=== PATIENT | male | born 1940 | race Caucasian/White ===

== ENCOUNTER → 2020-01-19 14:37 | Outpatient (CLI) | payer MEDICARE, OTHER, SELFPAY ==
--- NOTE | 2020-01-19 | DI.ECHO.S_ITS ---
[facility] +---------+ : : [address] : [place] : : : : [id number] : : : : Phone: [phone]+ Echocardiogram Report + + :Name: WINTER CARRILLO Study Date: 01/19/2020 Height: 73 in : :[facility] Weight: 200 lb : : Gender: Male BSA: 2.2 m2 : :: 1940 Age: 79 yrs BP: 160/70 mmHg: :Reason For Study: HTN : : Performed By: Minesh Irwin : :Referring: ZHANNA VITALE : + + Interpretation Summary The left ventricle is normal in size. The ejection fraction is estimated to be 60-65%. The right ventricle is mildly dilated. The right ventricular systolic function is normal. Both atria are severely dilated. There is mild to moderate mitral regurgitation. There is mild aortic regurgitation. There is mild to moderate tricuspid regurgitation. The right ventricular systolic pressure is estimated to be at least 52 mmHg based on an estimated right atrial pressure of 15 mm Hg. There is moderate pulmonary hypertension. There is a large right-sided pleural effusion. The patient was in atrial fibrillation with controlled ventricular rate during the exam. Procedure: A two-dimensional transthoracic echocardiogram with color flow and Doppler was performed. The study quality was technically good. There is no prior echocardiogram noted for this patient. The patient was in atrial fibrillation with controlled ventricular rate during the exam. The patient had a heart rate of 60-89 beats per minute. Left Ventricle: The left ventricle is normal in size. Proximal septal thickening is noted. There is no echo evidence for significant left ventricular outflow tract obstruction. There is no thrombus. The ejection fraction is estimated to be 60-65%. There are no focal wall motion abnormalities. Diastolic function could not be accurately assessed due to atrial fibrillation. Right Ventricle: The right ventricle is mildly dilated. The right ventricular systolic function is normal. Atria: Both atria are severely dilated. The interatrial septum is intact with no evidence for an atrial septal defect. Mitral Valve: There is mild mitral annular calcification. The mitral valve chordae are thickened and/or calcified. There is mild to moderate mitral regurgitation. Aortic Valve: The aortic valve is mildly calcified. There is minimally reduced leaflet mobility. The aortic valve is trileaflet. There is no hemodynamically significant valvular aortic stenosis. There is mild aortic regurgitation. Tricuspid Valve: The tricuspid annulus is dilated. There is mild to moderate tricuspid regurgitation. The right ventricular systolic pressure is estimated to be at least 52 mmHg based on an estimated right atrial pressure of 15 mm Hg. There is moderate pulmonary hypertension. Pulmonic Valve: The pulmonic valve leaflets are thin and pliable; valve motion is normal. There is mild pulmonic regurgitation. Great Vessels: The aortic root is normal size. There is aortic root sclerosis/calcification. The ascending aorta is at the upper limits of normal in size. The pulmonary artery is normal size. The IVC is dilated (diameter is greater than 2.1 cm) and it collapses less than 50% with a sniff. This suggests a high right atrial pressure of 15 mm Hg. Pericardium/ Pleura There is no pericardial effusion. There is a large right-sided pleural effusion. MMode/2D Measurements & Calculations LVIDd: 5.1 cm LVOT diam: 2.4 cm LVIDs: 3.3 cm Ao root diam: 3.8 cm FS: 36.1 % asc Aorta Diam: 3.7 cm EPSS: 0.11 cm IVSd: 0.96 cm LVPWd: 0.83 cm LV moreira. diameter/BSA (cm/m^2): 2.4 LV sys. diameter/BSA (cm/m^2): 1.5 LA dimension: 4.5 cm RA long axis: 7.2 cm LA A2 area: 38.5 cm2 RA area: 38.0 cm2 LA A4 area: 36.2 cm2 RA vol: 170.6 ml LA length (vol): 7.2 cm RA : 79.3 ml/m2 LA vol: 164.2 ml IVC diam: 3.0 cm LA vol index: 76.3 ml/m2 TAPSE: 1.9 cm Doppler Measurements & Calculations Ao V2 max: 151.1 cm/sec LVOT Max Ant: 96.6 cm/sec Ao V2 mean: 114.9 cm/sec LV V1 max P.7 mmHg Ao max P.2 mmHg LV V1 VTI: 20.6 cm Ao mean P.7 mmHg VARSHA(I,D): 2.9 cm2 Ao V2 VTI: 31.9 cm VARSHA(V,D): 2.9 cm2 sev ratio: 0.65 VARSHA indexed to BSA (cm^2/m^2): 1.4 AI P1/2t: 617.2 msec AI dec slope: 213.5 cm/sec2 MV E max ant: 98.1 cm/sec TR max ant: 301.9 cm/sec MV A max ant: 1.1 cm/sec TR max P.5 mmHg MV E/A: 93.1 PA V2 max: 82.7 cm/sec Med Peak E' Ant: 8.2 cm/sec PA V2 mean: 64.4 cm/sec E/E' med: 11.9 PA mean P.7 mmHg Lat Peak E' Ant: 11.7 cm/sec PA pr(Accel): 31.0 mmHg E/E' lat: 8.4 E/e' average: 10.2 MV dec time: 0.22 sec SV(LVOT): 93.0 ml Reading Physician:11:06 PM
== END ==
PROVIDERS: Family Provider Internal Medicine; PCP Internal Medicine; Referring Provider Internal Medicine; Visit Provider Internal Medicine
DX: I08.3 Combined rheumatic disorders of mitral, aortic and tricuspid valves (principal); J90 Pleural effusion, not elsewhere classified; I10 Essential (primary) hypertension; I48.91 Unspecified atrial fibrillation
CPT/HCPCS: 93306

== ENCOUNTER → 2020-07-17 09:44 | Outpatient (CLI) | payer MEDICARE, OTHER, SELFPAY ==
--- NOTE | 2020-07-17 | DI.US.S_ITS ---
PROCEDURE: US ABDOMEN LIMITED INDICATIONS: abnormal level of other serum enzymes TECHNIQUE: Real-time focused scanning was performed of the abdomen, with image documentation. COMPARISON: None. FINDINGS: Liver is normal in size and homogeneous in echotexture. Liver is slightly echogenic. No focal hepatic mass lesions. Small amount of free fluid noted adjacent to the liver. Gallbladder is sonographically normal. No gallstones. No gallbladder wall thickening with gallbladder wall measuring 1.6 millimeters. Trace pericholecystic fluid is noted. No sonographic Chatterjee sign. Biliary tree is nondilated. Common bile duct measures 3.6 millimeters. Pancreas is sonographically normal. Incidental note made of a loculated right pleural effusion. IMPRESSION: 1. Echogenic liver. Finding typically represents fatty infiltration; however, finding is nonspecific and correlation with clinical and laboratory findings is recommended to exclude other etiologies including hepatic cirrhosis. 2. Small amount of ascites. 3. Loculated right pleural effusion. Dictated by: Alycia Suresh MD, PhD on 07/17/2020 at 15:34 Approved by: Alycia Suresh MD, PhD on 07/17/2020 at 15:36
== END ==
PROVIDERS: Family Provider Internal Medicine; PCP Internal Medicine; Referring Provider Internal Medicine; Visit Provider Internal Medicine
DX: R74.8 Abnormal levels of other serum enzymes (principal); R18.8 Other ascites; J90 Pleural effusion, not elsewhere classified
CPT/HCPCS: 76705

== ENCOUNTER → 2020-12-12 13:57 | Outpatient (CLI) | payer MEDICARE, OTHER, SELFPAY ==
--- NOTE | 2020-12-12 14:00 | DI.US.S_ITS ---
PROCEDURE: US RENAL COMPLETE INDICATIONS: Chronic kidney disease, unspecified TECHNIQUE: Real-time scanning was performed of the kidneys and bladder, with image documentation. COMPARISON: [facility], , ABDOMEN LIMITED, 07/17/2020, 10:02. FINDINGS: Kidneys: Kidneys are normal in size. Right kidney measures 11.7 cm long; left kidney measures 11.8 cm long. Right renal cortical thickness is 1.7 cm; left renal cortical thickness is 1.8 cm. Renal cortical echotexture is normal. Severe bilateral hydronephrosis is present. Bladder: Pre-void bladder volume is 1032 mL. Post-void residual is 790 mL. Pre-void images demonstrate no intraluminal masses or stones. Miscellaneous: No free pelvic fluid. IMPRESSION: 1. 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 Recommend clinical correlation and follow-up. Dictated by: Dao Leigh [facility] Interpreted: Alycia Suresh MD on 12/12/2020 at 17:27 Transcribed by: MELODY on 12/12/2020 at 17:30 Approved by: Alycia Suresh MD, PhD on 12/12/2020 at 18:56
== END ==
PROVIDERS: Family Provider Internal Medicine; PCP Internal Medicine; Referring Provider Internal Medicine; Visit Provider Internal Medicine
DX: N18.9 Chronic kidney disease, unspecified (principal); N13.30 Unspecified hydronephrosis
CPT/HCPCS: 76770

== ENCOUNTER 2021-02-20 09:54 | Inpatient (IN) | payer MEDICARE, OTHER, SELFPAY ==
[2021-02-20] VITALS (18 sets, daily range): BP systolic 138–183; BP diastolic 67–97; PULSE 56–70; RESP 10–22; TEMP 36.6–37.1; O2SAT 96–99; BMI 29.1
--- NOTE | 2021-02-20 10:07 | DI.RAD.S_ITS ---
PROCEDURE: XR CHEST 1V INDICATIONS: CHF TECHNIQUE: One view of the chest was acquired. COMPARISON: None. FINDINGS: Heart size is enlarged, there is mild vascular congestion present. Moderate right pleural effusion appears loculated. Atherosclerotic vascular calcification noted in the aortic arch. Osseous structures unremarkable. IMPRESSION: Cardiomegaly and mild vascular congestion. Moderate right pleural effusion appears non dependent and possibly loculated. Consider follow-up contrast CT to exclude empyema Dictated by: Efren Saeed M.D. on 02/20/2021 at 9:55 Approved by: Efren Saeed M.D. on 02/20/2021 at 10:00
--- NOTE | 2021-02-20 10:19 | ED_ITS ---
HPI - General Adult General Chief complaint: Shortness of Breath/Dyspnea Stated complaint: BI LEG SWELLING Time Seen by Provider: 02/20/21 10:00 Source: patient Mode of arrival: Wheelchair Limitations: no limitations History of Present Illness HPI narrative: Patient is an 80-year-old male who was seen at the compliance project manager office this morning for atrial fibrillation and diastolic heart failure. This is the 1st time that he has seen this provider. He is on anticoagulation. He notes that over the past several weeks he has had increased swelling in his lower extremities and dyspnea on exertion. The compliance project manager felt given his presentation and social situation that the patient should be admitted for diuresis and echocardiogram. Patient denies any chest pain. He is taking his medications as directed. He states that he has also been recently evaluated by Urology in there has been concern about urinary retention. He is here under the direction of his compliance project manager. Related Data Home Medications Medication Instructions Recorded Confirmed CALCIUM CARBONATE/VITAMIN D3 1 ctb PO Q DAY #0 05/16/12 02/05/21 (Calcium 600 With Vit D Chew Tb) Saw [place] 450 mg PO Q DAY #0 05/16/12 02/05/21 cholecalciferol (vitamin D3) 25 1,000 iu PO Q DAY #0 05/16/12 02/05/21 mcg (1,000 unit) tablet (Vitamin D3) CHONDROITIN SULFATE/GLUCOSAMIN 1 tab PO Q DAY #0 05/17/12 02/05/21 (GLUCOSAMINE/CHONDROITIN 600 MG-750 MG) Multivitamin and Minerals5 (MATURE 1 tab PO Q DAY #0 05/17/12 02/05/21 COMPLETE) atenolol 50 mg tablet 50 mg PO DAILY 02/05/21 02/05/21 furosemide 40 mg tablet 40 mg PO DAILY 02/05/21 02/05/21 warfarin 5 mg tablet 5 mg PO DAILY 02/05/21 02/05/21 Previous Rx's Medication Instructions Recorded POTASSIUM CHLORIDE (K-DUR 20) 20 meq PO Q DAY #90 07/18/12 lisinopril 5 mg tablet 5 mg PO QDAY #90 09/13/12 Allergies Allergy/AdvReac Type Severity Reaction Status Date / Time hydrocodone [HYDROCODONE] Allergy Mild NAUSEA, Verified 02/20/21 10:32 VOMITING hydromorphone [HYDROMORPHONE] Allergy Mild NAUSEA, Verified 02/20/21 10:32 VOMITING Review of Systems Constitutional Constitutional: Denies fever(s) Cardiovascular Cardiovascular: Denies chest pain, Denies syncope, Denies rapid heart rate, Reports pedal edema, Reports dyspnea and Reports dyspnea on exertion Respiratory Respiratory: Denies cough, Reports dyspnea and Reports dyspnea on exertion Gastrointestinal Gastrointestinal: Denies abdominal pain, Denies nausea and Denies vomiting Genitourinary Comments: Not emptying bladder [place] Musculoskeletal Comments: Lower extremity swelling Integumentary/Breasts Skin/Breast: Denies rash Neurologic Neurologic: Denies syncope Psychiatric Psychiatric: Reports system reviewed and no additional complaints, except as documented Hematologic/Lymphatic On Anticoagulants: Yes Allergic/Immunologic Allergic/Immunologic: Reports system reviewed and no additional complaints, except as documented Patient History Medical History Atrial fibrillation Lower extremity edema Obstructive uropathy Urinary retention Social History Smoking Status: Former smoker Smoking Status: Former smoker alcohol intake frequency: 0-2 drinks per day Substance Use Type: does not use Exam Initial Vital Signs Initial Vital Signs: Vital Signs Temperature 98.1 F 02/20/21 09:58 Pulse Rate 68 02/20/21 09:58 Respiratory Rate 20 02/20/21 09:58 Blood Pressure 165/97 H 02/20/21 09:58 Pulse Oximetry 99 02/20/21 09:58 Const General: cooperative and No acute distress HENMT Head: normal to inspection and normocephalic Eyes General: appearance normal, both eyes and all related structures Neck Neck: normal visual inspection Resp Effort & Inspection: tachypneic Auscultation: crackles Cardio Rate: regular rate Rhythm: abnormal rhythm GI Inspection: normal to inspection Palpation: soft Skin General: no rashes or lesions noted Neuro General: patient alert, patient awake and patient oriented x3 Extrem General: capillary refill normal and edema Psych Appearance: grossly normal and well kempt Scores GCS [place] coma scale eye opening: Spontaneous [place] coma scale verbal response: Orientated [place] coma scale motor response: Obey commands [place] coma scale total score: 15 Course Orders Ordered: ED Orders 02/20/21 10:07 XR chest 1V Stat EKG-12 Lead Stat 02/20/21 10:12 Complete Blood Count AUTO DIFF Stat Comprehensive Metabolic Panel Stat Lipase Stat NT-proBNP (BNP-Adult 18+) Stat Troponin & CK Cardiac Panel Stat 02/20/21 10:38 COVID19 - ADMIT (THERMAL MOLDER swab/PCR) Stat 02/20/21 10:45 Partial Thromboplastin Time Stat Prothrombin Time INR Stat Urinalysis and Microscopic Stat 02/20/21 11:22 CT chest w con Stat Discontinued Medications Furosemide (Furosemide 100 Mg/10 Ml Vial) 80 mg IV NOW ONE Stop: 02/20/21 10:20 Last Admin: 02/20/21 10:56 Dose: 80 mg Documented by: BAIRON Vital Signs Vital signs: Vital Signs - 8 hr 02/20/21 09:58 02/20/21 10:31 02/20/21 10:36 Temperature 98.1 F Pulse Rate 68 62 58 L Respiratory Rate 20 14 17 Blood Pressure 165/97 H 168/90 H Pulse Oximetry 99 98 99 02/20/21 11:00 02/20/21 11:38 02/20/21 12:00 Temperature Pulse Rate 62 63 57 L Respiratory Rate 15 16 13 Blood Pressure 179/85 H 183/83 H Pulse Oximetry 99 99 02/20/21 12:01 02/20/21 12:30 02/20/21 12:32 Temperature Pulse Rate 62 56 L 56 L Respiratory Rate 13 16 13 Blood Pressure 174/83 H 168/83 H Pulse Oximetry 98 99 99 02/20/21 13:00 Temperature Pulse Rate 56 L Respiratory Rate 10 L Blood Pressure 159/88 H Pulse Oximetry 98 Medical Decision Making Medical Records Medical records reviewed: Yes I reviewed the patient's medical records. Lab Data Lab results reviewed: Yes I reviewed the patient's lab results. Result diagrams: 02/20/21 10:12 02/20/21 10:12 Labs: Lab Results 02/20/21 02/20/21 02/20/21 Range/Units 10:12 10:12 10:38 WBC 6.2 (4.5-11.0) X10^3/uL RBC 3.09 L (4.5-5.9) X10^6/uL Hgb 10.5 L (13.5-17.5) g/dL Hct 31.4 L (41-53) % MCV 101.4 H (80-100) fL MCH 34.0 (26-34) PG MCHC 33.5 (30-36) % RDW 16.8 H (11.6-14.8) % Plt Count 182 (150-400) X10^3/uL Neut % (Auto) 53.3 (50-75) % Lymph % (Auto) 22.7 L (25-40) % Wilkes % (Auto) 11.6 (3-14) % Eos % (Auto) 8.3 H (2-4) % Baso % (Auto) 4.1 H (0-2) % Neut # (Auto) 3300 (2390-2360) /uL Lymph # (Auto) 1400 (3914-6371) /uL Wilkes # (Auto) 700 (0-900) /uL Eos # (Auto) 500 H (0-450) /uL Baso # (Auto) 300 H (0-100) /uL PT (10.1-12.7) SECONDS INR (0.9-1.3) APTT (26.4-36.2) SECONDS Sodium 142 (137-145) mmol/L Potassium 3.8 (3.4-5.1) mmol/L Chloride 108 H (98-107) mmol/L Carbon Dioxide 27 (22-32) mmol/L BUN 17 (9-20) mg/dL Creatinine 1.38 H (0.66-1.25) mg/dL Estimated GFR 49.3 L (>60) mL/min BUN/Creatinine Ratio 12.3 (6-22) Glucose 97 (80-110) mg/dL Calcium 9.2 (8.4-10.2) mg/dL Total Bilirubin 1.3 (0.2-1.3) mg/dL AST 43 (17-59) IU/L ALT 25 (<50) IU/L Alkaline Phosphatase 130 H (38-126) U/L Total Creatine Kinase 186 H (55-170) U/L CK-MB (CK-2) 4.30 H (<2.37) ng/mL CK-MB (CK-2) Rel Index 2.3 (1.5-5.0) % Troponin I 0.012 (0.01-0.034) ng/mL NT-Pro-B Natriuret Pep 3490 H (<450) pg/mL Total Protein 7.5 (6.3-8.2) g/dL Albumin 3.9 (3.5-5.0) g/dL Globulin 3.6 (1.7-4.1) g/dL Albumin/Globulin Ratio 1.1 (1.0-2.8) Lipase 142 (23-300) U/L Urine Color Urine Appearance Urine pH (4.5-8.0) Ur Specific [place] (1.000-1.035) Urine Protein (Negative) Urine Glucose (UA) (Negative) g/dL Urine Ketones (NEGATIVE) Urine Occult Blood (Negative) Urine Nitrate (Negative) Urine Bilirubin (NEGATIVE) Urine Urobilinogen (0.2) E.U./dL Ur Leukocyte Esterase (NEGATIVE) Urine RBC (0-5/HPF) Urine WBC (0-5/HPF) Urine Bacteria (None) Ur Culture Indicated? SARS-CoV-2 (PCR) Negative (Negative) 02/20/21 02/20/21 Range/Units 10:45 10:45 WBC (4.5-11.0) X10^3/uL RBC (4.5-5.9) X10^6/uL Hgb (13.5-17.5) g/dL Hct (41-53) % MCV (80-100) fL MCH (26-34) PG MCHC (30-36) % RDW (11.6-14.8) % Plt Count (150-400) X10^3/uL Neut % (Auto) (50-75) % Lymph % (Auto) (25-40) % Wilkes % (Auto) (3-14) % Eos % (Auto) (2-4) % Baso % (Auto) (0-2) % Neut # (Auto) (8470-3152) /uL Lymph # (Auto) (1160-0291) /uL Wilkes # (Auto) (0-900) /uL Eos # (Auto) (0-450) /uL Baso # (Auto) (0-100) /uL PT 30.6 H (10.1-12.7) SECONDS INR 2.7 H (0.9-1.3) APTT 39 H (26.4-36.2) SECONDS Sodium (137-145) mmol/L Potassium (3.4-5.1) mmol/L Chloride (98-107) mmol/L Carbon Dioxide (22-32) mmol/L BUN (9-20) mg/dL Creatinine (0.66-1.25) mg/dL Estimated GFR (>60) mL/min BUN/Creatinine Ratio (6-22) Glucose (80-110) mg/dL Calcium (8.4-10.2) mg/dL Total Bilirubin (0.2-1.3) mg/dL AST (17-59) IU/L ALT (<50) IU/L Alkaline Phosphatase (38-126) U/L Total Creatine Kinase (55-170) U/L CK-MB (CK-2) (<2.37) ng/mL CK-MB (CK-2) Rel Index (1.5-5.0) % Troponin I (0.01-0.034) ng/mL NT-Pro-B Natriuret Pep (<450) pg/mL Total Protein (6.3-8.2) g/dL Albumin (3.5-5.0) g/dL Globulin (1.7-4.1) g/dL Albumin/Globulin Ratio (1.0-2.8) Lipase (23-300) U/L Urine Color [place] Urine Appearance Clear Urine pH 7.0 (4.5-8.0) Ur Specific [place] 1.010 (1.000-1.035) Urine Protein Negative (Negative) Urine Glucose (UA) Negative (Negative) g/dL Urine Ketones Negative (NEGATIVE) Urine Occult Blood 1+ H (Negative) Urine Nitrate Negative (Negative) Urine Bilirubin Negative (NEGATIVE) Urine Urobilinogen 0.2 (0.2) E.U./dL Ur Leukocyte Esterase Negative (NEGATIVE) Urine RBC 5-10/hpf H (0-5/HPF) Urine WBC None seen (0-5/HPF) Urine Bacteria None seen (None) Ur Culture Indicated? Cult not indicated SARS-CoV-2 (PCR) (Negative) Imaging Data CT scan - chest: Radiologist's Impression: [address] [id number] Scan ReportSigned Patient: Néstor Soto MAGGIE#: [id number]: [id number]:[id number]/Sex: 80 / MDate of Service: 02/20/21Loc: EDAccession Number: [id number] Procedure: CT chest w con Ordering Provider: Wally Doss D.O. PROCEDURE: CT CHEST W CON INDICATIONS: Eval for right-sided empyema TECHNIQUE: After the administration of intravenous contrast, 5 mm thick sections acquired from the pulmonary apices to the posterior costophrenic angles. 1 mm axial lung, 5 mm thick coronal and sagittal reformats and 7 mm axial MIP were acquired. For radiation dose reduction, the following was used: automated exposure control, adjustment of mA and/or kV according to patient size. COMPARISON: [facility], CR, XR CHEST 1V, 02/20/2021, 10:09. FINDINGS: Image quality: Excellent. Lungs and pleura: There is a moderate right and mild left pleural effusion. Areas of superimposed consolidative opacity are noted left. There is a very minimal appearance of pleural enhancement particularly in the posterior inferior aspect appearing slightly asymmetric from the left. Mediastinum: Heart size is large. No pericardial effusion. Multiple lymph nodes are noted within the mediastinum including a 2.1 cm right anterior paratracheal lymph node. There is an exophytic low-attenuation mass at the margin of the anterior mediastinal fat measuring 2.3 x 1.6 cm on series 2, image 22. Hounsfield units measure 33. Right hilar mass is present measuring 1.8 cm. Thoracic aorta and central pulmonary arteries are normal in size. Esophagus is normal in caliber. No hiatal hernia. Bones and chest wall: No suspicious bony lesions. No vertebral body compression fractures. No axillary or supraclavicular adenopathy by size criteria. Thyroid gland is unremarkable . Abdomen: There is partially visualized prominence of the left renal collecting system. Otherwise, visualized upper abdominal solid organs appear normal. Upper abdominal bowel loops are normal in caliber. IMPRESSION: 1. Mild to moderate bilateral effusions, right greater than left. There is a very minimal appearance of asymmetric pleural enhancement noted on the right. While it is not as prominent as typically seen as empyema, it cannot be definitively excluded. 2. Superimposed consolidations are present most notably on the right suspected to be atelectasis. However, areas of underlying pneumonia or other mass lesion cannot be excluded. 3. Hilar and mediastinal adenopathy is present. While this could be reactive in nature, given presence of effusions, underlying areas of mass lesion potentially malignancy with malignant adenopathy cannot be excluded. Interval follow-up is recommended. 4. Paramediastinal mass as described above adjacent to the anterior mediastinum. Hounsfield units are greater than expected for a simple cyst. This is highly suspicious of either malignant exophytic lymph node or lung mass concerning for malignancy. Dictated by: Selene Delcid M.D. on 02/20/2021 at 12:19 Approved by: Selene Delcid M.D. on 02/20/2021 at 12:49 Chest x-ray: Radiologist's Impression: [address] [id number] ReportSigned Patient: Néstor Soto JMR#: [id number]: 8Acct:[id number]/Sex: 80 / MDate of Service: 02/20/21Loc: EDAccession Number: [id number] Procedure: XR chest 1V Ordering Provider: Wally Doss D.O. PROCEDURE: XR CHEST 1V INDICATIONS: CHF TECHNIQUE: One view of the chest was acquired. COMPARISON: None. FINDINGS: Heart size is enlarged, there is mild vascular congestion present. Moderate right pleural effusion appears loculated. Atherosclerotic vascular calcification noted in the aortic arch. Osseous structures unremarkable. IMPRESSION: Cardiomegaly and mild vascular congestion. Moderate right pleural effusion appears non dependent and possibly loculated. Consider follow-up contrast CT to exclude empyema Dictated by: Efren Saeed M.D. on 02/20/2021 at 9:55 Approved by: Efren Saeed M.D. on 02/20/2021 at 10:00 ECG Data Attestation: I personally reviewed and interpreted this ECG as follows: Interpretation: Atrial fibrillation Ventricular rate is 68 Normal QRS Normal QTC No ST T wave changes MDM Narrative Medical decision making narrative: Patient is tachypneic. Chest x-ray does show pleural effusions. There was some report of a potential empyema so CT scan of the chest was ordered which again showed effusions. No chest pain. BNP elevated. Does have lower extremity swelling. Patient was given Lasix here in the emergency department and did diurese. COVID is negative. Patient's card iologist recommended patient be admitted to the hospital for diuresis and also an echocardiogram. Will admit for further evaluation and treatment. Discussed the case with Dr. Chong with Internal Medicine. Discharge Plan Departure Patient Disposition: Admitted as Observation Clinical Impression: Congestive heart failure, Shortness of breath, Pleural effusion Admit Date/Time: 02/20/21 13:43 Admit Provider: Jc Chong
[2021-02-20 10:28] LABS: Add Manual Diff / Slide Review NO; Basophils Absolute Auto 300 /uL (0-100); Basophils Percent Auto 4.1 % (0-2); Eosinophils Absolute Auto 500 /uL (0-450); Eosinophils Percent Auto 8.3 % (2-4); Hematocrit 31.4 % (41-53); Hemoglobin 10.5 g/dL (13.5-17.5); Lymphocytes Absolute Auto 1400 /uL (1100-4500); Lymphocytes Percent Auto 22.7 % (25-40); Mean Corpuscular HGB Conc 33.5 % (30-36); Mean Corpuscular Volume 101.4 fL (80-100); Monocytes Absolute Auto 700 /uL (0-900); Monocytes Percent Auto 11.6 % (3-14); Neutrophils Absolute Auto 3300 /uL (1500-7000); Neutrophils Percent Auto 53.3 % (50-75); Platelet Count 182 X10^3/uL (150-400); Red Blood Cell Count 3.09 X10^6/uL (4.5-5.9); Red Cell Distribution Width 16.8 % (11.6-14.8); White Blood Cell Count 6.2 X10^3/uL (4.5-11.0)
[2021-02-20 10:36] LABS: Alanine Aminotransferase 25 IU/L (<50); Albumin 3.9 g/dL (3.5-5.0); Albumin Globulin Ratio 1.1 (1.0-2.8); Alkaline Phosphatase 130 U/L (38-126); Aspartate Aminotransferase 43 IU/L (17-59); BUN Creatinine Ratio 12.3 (6-22); Bilirubin Total 1.3 mg/dL (0.2-1.3); Blood Urea Nitrogen 17 mg/dL (9-20); Calcium 9.2 mg/dL (8.4-10.2); Carbon Dioxide 27 mmol/L (22-32); Chloride 108 mmol/L (98-107); Creatine Kinase 186 U/L (55-170); Estimated Glomerular Filt Rate 49.3 mL/min (>60); Globulin 3.6 g/dL (1.7-4.1); Glucose 97 mg/dL (80-110); HEMOLYSIS < 15 (0-50); Lipase 142 U/L (23-300); Potassium 3.8 mmol/L (3.4-5.1); Sodium 142 mmol/L (137-145); Total Protein 7.5 g/dL (6.3-8.2)
[2021-02-20 10:46] LABS: NT-proBNP (BNP-Adult 18+) 3490 pg/mL (<450); Troponin I 0.012 ng/mL (0.01-0.034)
[2021-02-20 10:51] LABS: CKMB % Relative Index 2.3 % (1.5-5.0)
[2021-02-20] MEDS: FUROSEMIDE 100 MG/10 ML VIAL 80 MG IV (10:56)
[2021-02-20 10:57] LABS: Bacteria Urine None Seen; WBC Urine None Seen (0-5/HPF)
[2021-02-20 10:58] LABS: Appearance Urine UA CLEAR; Bilirubin Urine UA NEGATIVE (NEGATIVE); Color Urine UA ORANGE; Glucose Urine UA NEGATIVE (Negative); Ketones Urine UA NEGATIVE (NEGATIVE); Leukocyte Esterase Urine UA NEGATIVE (NEGATIVE); Nitrite Urine UA NEGATIVE (Negative); Occult Blood Urine UA 1+ (Negative); Protein Urine UA NEGATIVE (Negative); Urobilinogen Urine UA 0.2 E.U./dL (0.2)
[2021-02-20 11:10] LABS: INR 2.7 (0.9-1.3); Prothrombin Time 30.6 SECONDS (10.1-12.7)
[2021-02-20 11:13] LABS: PTT Partial Thromboplastin Tim 39 SECONDS (26.4-36.2)
--- NOTE | 2021-02-20 11:22 | DI.CT.S_ITS ---
PROCEDURE: CT CHEST W CON INDICATIONS: Eval for right-sided empyema TECHNIQUE: After the administration of intravenous contrast, 5 mm thick sections acquired from the pulmonary apices to the posterior costophrenic angles. 1 mm axial lung, 5 mm thick coronal and sagittal reformats and 7 mm axial MIP were acquired. For radiation dose reduction, the following was used: automated exposure control, adjustment of mA and/or kV according to patient size. COMPARISON: [facility], CR, XR CHEST 1V, 02/20/2021, 10:09. FINDINGS: Image quality: Excellent. Lungs and pleura: There is a moderate right and mild left pleural effusion. Areas of superimposed consolidative opacity are noted left. There is a very minimal appearance of pleural enhancement particularly in the posterior inferior aspect appearing slightly asymmetric from the left. Mediastinum: Heart size is large. No pericardial effusion. Multiple lymph nodes are noted within the mediastinum including a 2.1 cm right anterior paratracheal lymph node. There is an exophytic low-attenuation mass at the margin of the anterior mediastinal fat measuring 2.3 x 1.6 cm on series 2, image 22. Hounsfield units measure 33. Right hilar mass is present measuring 1.8 cm. Thoracic aorta and central pulmonary arteries are normal in size. Esophagus is normal in caliber. No hiatal hernia. Bones and chest wall: No suspicious bony lesions. No vertebral body compression fractures. No axillary or supraclavicular adenopathy by size criteria. Thyroid gland is unremarkable . Abdomen: There is partially visualized prominence of the left renal collecting system. Otherwise, visualized upper abdominal solid organs appear normal. Upper abdominal bowel loops are normal in caliber. IMPRESSION: 1. Mild to moderate bilateral effusions, right greater than left. There is a very minimal appearance of asymmetric pleural enhancement noted on the right. While it is not as prominent as typically seen as empyema, it cannot be definitively excluded. 2. Superimposed consolidations are present most notably on the right suspected to be atelectasis. However, areas of underlying pneumonia or other mass lesion cannot be excluded. 3. Hilar and mediastinal adenopathy is present. While this could be reactive in nature, given presence of effusions, underlying areas of mass lesion potentially malignancy with malignant adenopathy cannot be excluded. Interval follow-up is recommended. 4. Paramediastinal mass as described above adjacent to the anterior mediastinum. Hounsfield units are greater than expected for a simple cyst. This is highly suspicious of either malignant exophytic lymph node or lung mass concerning for malignancy. Dictated by: Selene Delcid M.D. on 02/20/2021 at 12:19 Approved by: Selene Delcid M.D. on 02/20/2021 at 12:49
[2021-02-20 11:26] LABS: Culture Indicated Urine Cult Not Indicated; RBC Urine 5-10/HPF (0-5/HPF)
[2021-02-20 12:03] LABS: COVID19 - ADMIT (NP swab/PCR) Negative (Negative)
--- NOTE | 2021-02-20 14:40 | PC.NURSE ---
Admit note: Patient admitted from ED, awake, alert and pleasantly cooperative. TELE placed on arrival. Oriented to room, environment, and plan of care.
--- NOTE | 2021-02-20 16:29 | P.HP_ITS ---
History of Present Illness History of Present Illness Date Patient Seen: 02/20/21 Time Patient Seen: 16:29 Chief complaint: BI LEG SWELLING Narrative: This is an 80 year old male with a past medical history atrial fibrillation on anticoagulation, overflow incontinence / chronic urinary obstruction, diastolic heart failure who was sent to the emergency room at the direction of his new supervisor nutritional yeast for presumed heart failure. He has gained close to 40 lb over the past 6 months, with slow gradual weight gain and worsening fatigue and weakness. He only admits to lower extremity edema, scrotal edema, and early satiety. He denies any shortness of breath though he walks generally very slowly and paces himself when going to the grocery store. He denies any chest pain, palpitations, headaches, vision changes, chest pressure, dyspnea on exertion, orthopnea. In the emergency room, the patient was mildly hypertensive, the remainder of his vital signs were unremarkable. Patient was saturating well on room air. Initial labs were notable for a mild anemia with a hemoglobin of 10.5 with an MCV of 101.4. INR was therapeutic at 2.7. Chemistries revealed a mild elevation is creatinine to 1.38, his usual baseline appears to be around 1.1. The remainder of his chemistries were unremarkable. Troponin was within normal limits at 0.012. ProBNP was elevated at 3490. Urinalysis was performed which showed 1+ occult blood, 5-10 rbc's, the patient is already scheduled for an outpatient cystoscopy per Urology documentation. COVID-19 testing was negative. Chest x-ray showed cardiomegaly with a right-sided pleural effusion, possibly loculated so CT was recommended. CT of his chest with contrast showed bilateral pleural effusions, right greater than left without loculation but did show some mild pleural thickening possibly. There also superimposed consolidations most probably due to atelectasis but could not rule out infectious etiologies. There was also hilar adenopathy as well as a paramediastinal mass concerning for possible malignancy. Patient History Medical History (Updated 02/20/21 @ 16:44 by Jc Chong DO) Atrial fibrillation Elevated PSA (05/16/12) Hypertension (05/16/12) Lower extremity edema Obstructive uropathy Urinary retention Surgical History (Updated 02/20/21 @ 16:44 by Jc Chong DO) H/O inguinal hernia repair Family & Social History Family History (Updated 02/20/21 @ 16:46 by Jc Chong DO) Mother Cancer Father Hypertension Social History: household members significant other Prior Living Arrangements House Safety & Behavioral: Feels Safe in Current Yes Environment Been Physically Hurt or No Threatened By a Person Tobacco & Substance use: Smoking Status Former smoker alcohol intake frequency 0-2 drinks per day Substance Use Type does not use Meds Home Medications and Allergies Home Medications Medication Instructions Recorded Confirmed Type lisinopril 5 mg tablet 5 mg PO QDAY #90 09/13/12 02/20/21 Rx atenolol 50 mg tablet 50 mg PO DAILY 02/05/21 02/20/21 History furosemide 40 mg tablet 40 mg PO DAILY 02/05/21 02/20/21 History warfarin 5 mg tablet 5 mg PO DAILY 02/05/21 02/20/21 History potassium chloride 20 mEq 20 meq PO DAILY 02/20/21 02/20/21 History tablet,extended release(part/cryst) tamsulosin 0.4 mg capsule 0.4 mg PO DAILY 02/20/21 02/20/21 History Allergies Allergy/AdvReac Type Severity Reaction Status Date / Time hydrocodone [HYDROCODONE] Allergy Mild NAUSEA, Verified 02/20/21 10:32 VOMITING hydromorphone [HYDROMORPHONE] Allergy Mild NAUSEA, Verified 02/20/21 10:32 VOMITING Review of Systems Review of Systems Narrative: All other systems reviewed with the patient and are negative unless otherwise stated. Exam Vital Signs (past 8 hours): - 02/20/21 09:58 02/20/21 10:31 02/20/21 10:36 Temperature 98.1 F Pulse Rate 68 62 58 L Respiratory Rate 20 14 17 Blood Pressure 165/97 H 168/90 H Pulse Oximetry 99 98 99 02/20/21 11:00 02/20/21 11:38 02/20/21 12:00 Temperature Pulse Rate 62 63 57 L Respiratory Rate 15 16 13 Blood Pressure 179/85 H 183/83 H Pulse Oximetry 99 99 02/20/21 12:01 02/20/21 12:30 02/20/21 12:32 Temperature Pulse Rate 62 56 L 56 L Respiratory Rate 13 16 13 Blood Pressure 174/83 H 168/83 H Pulse Oximetry 98 99 99 02/20/21 13:00 02/20/21 13:30 02/20/21 14:00 Temperature Pulse Rate 56 L 59 L 67 Respiratory Rate 10 L 22 14 Blood Pressure 159/88 H 179/80 H 154/88 H Pulse Oximetry 98 99 96 02/20/21 14:36 Temperature Pulse Rate 66 Respiratory Rate 22 Blood Pressure 162/82 H Pulse Oximetry 99 Oxygen Delivery Method Room Air Narrative Exam Narrative: GENERAL APPEARANCE: Well developed, well nourished, in no acute distress. SKIN: Inspection of the skin reveals no rashes, ulcerations or petechiae. HEENT: Normocephalic atraumatic, extraocular muscles are intact, oropharynx is clear and mucous membranes are moist, neck is supple without adenopathy NECK: Supple and symmetric. There was no thyroid enlargement, and no tenderness, or masses were felt. CHEST: Normal AP diameter and normal contour without any kyphoscoliosis. LUNGS: Auscultation of the lungs revealed no wheezes, rhonchi, or rales. CARDIOVASCULAR: Irregularly irregular rhythm normal rate, there is a 3/6 systolic murmur but no rubs or gallops. ABDOMEN: Soft and nontender with normal bowel sounds. No ascites was noted. MUSCULOSKELETAL: There was no tenderness or effusions noted. Muscle strength and tone were normal. EXTREMITIES: No cyanosis, clubbing. Large LE and scrotal pitting edema. NEUROLOGIC: Alert and oriented x 3. Normal affect. Gait was normal. Strength is +5/5 in the Upper Extremities and Lower Extremities Bilaterally. Sensation to touch was normal. Objective ECG Impression: Atrial fibrillation with occasional PAC. No evidence of acute ischemia. Imaging Chest x-ray: My impression: Cardiomegaly, right-sided pleural effusion. Labs Result Diagrams: 02/20/21 10:12 02/20/21 10:12 Labs: Laboratory Results - last 24 hr 02/20/21 02/20/21 02/20/21 10:12 10:12 10:38 WBC 6.2 RBC 3.09 L Hgb 10.5 L Hct 31.4 L MCV 101.4 H MCH 34.0 MCHC 33.5 RDW 16.8 H Plt Count 182 Neut % (Auto) 53.3 Lymph % (Auto) 22.7 L [place] % (Auto) 11.6 Eos % (Auto) 8.3 H Baso % (Auto) 4.1 H Neut # (Auto) 3300 Lymph # (Auto) 1400 [place] # (Auto) 700 Eos # (Auto) 500 H Baso # (Auto) 300 H PT INR APTT Sodium 142 Potassium 3.8 Chloride 108 H Carbon Dioxide 27 BUN 17 Creatinine 1.38 H Estimated GFR 49.3 L BUN/Creatinine Ratio 12.3 Glucose 97 Calcium 9.2 Total Bilirubin 1.3 AST 43 ALT 25 Alkaline Phosphatase 130 H Total Creatine Kinase 186 H CK-MB (CK-2) 4.30 H CK-MB (CK-2) Rel Index 2.3 Troponin I 0.012 NT-Pro-B Natriuret Pep 3490 H Total Protein 7.5 Albumin 3.9 Globulin 3.6 Albumin/Globulin Ratio 1.1 Lipase 142 Urine Color Urine Appearance Urine pH Ur Specific [place] Urine Protein Urine Glucose (UA) Urine Ketones Urine Occult Blood Urine Nitrate Urine Bilirubin Urine Urobilinogen Ur Leukocyte Esterase Urine RBC Urine WBC Urine Bacteria Ur Culture Indicated? SARS-CoV-2 (PCR) Negative 02/20/21 02/20/21 10:45 10:45 WBC RBC Hgb Hct MCV MCH MCHC RDW Plt Count Neut % (Auto) Lymph % (Auto) [place] % (Auto) Eos % (Auto) Baso % (Auto) Neut # (Auto) Lymph # (Auto) [place] # (Auto) Eos # (Auto) Baso # (Auto) PT 30.6 H INR 2.7 H APTT 39 H Sodium Potassium Chloride Carbon Dioxide BUN Creatinine Estimated GFR BUN/Creatinine Ratio Glucose Calcium Total Bilirubin AST ALT Alkaline Phosphatase Total Creatine Kinase CK-MB (CK-2) CK-MB (CK-2) Rel Index Troponin I NT-Pro-B Natriuret Pep Total Protein Albumin Globulin Albumin/Globulin Ratio Lipase Urine Color [place] Urine Appearance Clear Urine pH 7.0 Ur Specific [place] 1.010 Urine Protein Negative Urine Glucose (UA) Negative Urine Ketones Negative Urine Occult Blood 1+ H Urine Nitrate Negative Urine Bilirubin Negative Urine Urobilinogen 0.2 Ur Leukocyte Esterase Negative Urine RBC 5-10/hpf H Urine WBC None seen Urine Bacteria None seen Ur Culture Indicated? Cult not indicated SARS-CoV-2 (PCR) Assessment & Plan Assessment & Plan narrative: This is an 80 year old male with a past medical history atrial fibrillation on anticoagulation, overflow incontinence / chronic urinary obstruction, diastolic heart failure who was sent to the emergency room at the direction of his new supervisor nutritional yeast for presumed heart failure. He is massively volume overloaded, possibly secondary to worsening heart failure but likely a combination of his diastolic dysfunction and chronic urinary obstruction. 1. Acute on chronic diastolic heart failure, present on admission -patient with massive volume overload in his lower extremities and has significant scrotal edema as well. He has no acute respiratory failure and fairly minimal respiratory symptoms at this time. -he was given 80 mg of IV Lasix in the emergency room with massive output, a [place] catheter was placed as well. Given his chronic urinary obstruction his volume overload is likely secondary to both his acute heart failure and urinary retention. Will hold off on additional Lasix overnight as he may have a postobstructive diuresis after De [place] catheter placement in the emergency room. -consider furosemide 40 mg tomorrow depending on output overnight -strict intake and output -1.2 L fluid restriction -obtain TTE 2. Acute on Chronic urinary obstruction - continue de la rosa catheter, flomax. Bladder scan of >700 cc in the ER. Given chronic obstruction documented as an outpatient, watch for post obstructive diuresis and keep de la rosa catheter until outpatient follow up with urology. 3. Likely chronic atrial fibrillation though exact type is not fully known, on anticoagulation - continue atenolol and warfarin 4. Mediastinal mass and bilateral pleural effusions - possible new malignancy noted on CT. Bilateral pleural effusions on CT as well. Probably related to volume overload. Would recommend repeat imaging as an outpatient after diuresis, with possible referral for biopsy if desired. Code: Full, surrogate decision maker is patient's daughterIsis Dispo: admit as observation DVT: on coumadin. COVID-19 COVID-19 status: Negative Time Spent With Patient Time with patient: Greater than 35 minutes Quality MIPS - Admit I confirm the patient?s Advance Care Plan is present, Code status is documented, Surrogate decision maker is in patient?s record [If Yes, STOP here]: Yes
--- NOTE | 2021-02-20 17:01 | DI.ECHO.S_ITS ---
[facility]---------+ [facility] +---------+ : : [address] : [place] : : : : [id number] : : : : Phone: [phone]+ Echocardiogram Report + + :Name: WINTER CARRILLO Study Date: 02/21/2021 Height: 75 in : :[facility] ReadingLocation: Weight: 233 lb : : Gender: Male BSA: 2.3 m2 : :: 1940 Age: 80 yrs BP: 134/74 mmHg: :Reason For Study: Congestive Heart Failure : :Ordering Physician: SAMARIA, : :JUVE SEARS Performed By: Nathanael Bañuelos : :Referring: JUVE MERA : + + Interpretation Summary The left ventricle is normal in size and wall thickness. Left ventricular systolic function is normal. The ejection fraction is estimated to be 60-65%. LVEF has not changed. There are no focal wall motion abnormalities. The right ventricle is normal in size and function. The right ventricular systolic pressure is estimated to be at least 56 mmHg based on an estimated right atrial pressure of 15 mm Hg. Compared to the prior echo exam, there has been no change in the severity of pulmonary hypertension. The left atrium is moderately dilated. The right atrium is mildly dilated. There is mild mitral regurgitation. There is mild aortic regurgitation. There is no other significant valvular heart disease. The aortic root is normal size. Procedure: A two-dimensional transthoracic echocardiogram with color flow and Doppler was performed. The study quality was technically adequate. Comparison is made with the echocardiogram of 01/19/2020. The patient was in atrial fibrillation with controlled ventricular rate during the exam. Left Ventricle: The left ventricle is normal in size and wall thickness. Left ventricular systolic function is normal. The ejection fraction is estimated to be 60-65%. There are no focal wall motion abnormalities. Diastolic function could not be accurately assessed due to atrial fibrillation. Right Ventricle: The right ventricle is normal in size and function. Atria: The left atrium is moderately dilated. The right atrium is mildly dilated. There is no Doppler evidence for an interatrial shunt. Mitral Valve: There is mild mitral annular calcification. There is mild mitral regurgitation. Aortic Valve: There is mild aortic valve sclerosis. There is mild aortic regurgitation. Tricuspid Valve: The tricuspid valve is normal in structure and function. There is mild tricuspid regurgitation. The right ventricular systolic pressure is estimated to be at least 56 mmHg based on an estimated right atrial pressure of 15 mm Hg. Compared to the prior echo exam, there has been no change in the severity of pulmonary hypertension. Pulmonic Valve: The pulmonic valve is not well seen, but is grossly normal. There is no other significant valvular heart disease. Great Vessels: The aortic root is normal size. The ascending aorta could not be visualized. The IVC is dilated (diameter is greater than 2.1 cm) and it collapses less than 50% with a sniff. This suggests a high right atrial pressure of 15 mm Hg. Pericardium/ Pleura There is no pericardial effusion. There is no pleural effusion. MMode/2D Measurements & Calculations LVIDd: 5.4 cm LVOT diam: 2.2 cm LVIDs: 3.7 cm Ao root diam: 3.5 cm FS: 31.2 % IVSd: 0.89 cm LVPWd: 0.89 cm LV moreira. diameter/BSA (cm/m^2): 2.3 LV sys. diameter/BSA (cm/m^2): 1.6 LA A2 area: 30.8 cm2 RA long axis: 7.1 cm LA A4 area: 30.2 cm2 RA area: 27.7 cm2 LA length (vol): 6.8 cm RA vol: 91.6 ml LA vol: 115.2 ml RA : 39.1 ml/m2 LA vol index: 49.2 ml/m2 IVC diam: 2.7 cm TAPSE: 2.1 cm Doppler Measurements & Calculations Ao V2 max: 164.1 cm/sec LVOT Max Zena: 90.6 cm/sec Ao V2 mean: 118.5 cm/sec LV V1 max P.3 mmHg Ao max P.8 mmHg LV V1 VTI: 19.0 cm Ao mean P.3 mmHg VARSHA(I,D): 2.3 cm2 Ao V2 VTI: 32.0 cm VARSHA(V,D): 2.1 cm2 sev ratio: 0.59 VARSHA indexed to BSA (cm^2/m^2): 0.98 MV E max zena: 104.1 cm/sec TR max zena: 321.4 cm/sec Med Peak E' Zena: 8.2 cm/sec TR max P.3 mmHg E/E' med: 12.7 PA pr(Accel): 23.3 mmHg Lat Peak E' Zena: 12.4 cm/sec E/E' lat: 8.4 E/e' average: 10.5 SV(LVOT): 73.5 ml Reading Physician:12:56 PM
[2021-02-20] MEDS: atenoloL 50 MG TABLET PO (18:44)
[2021-02-20] MEDS: WARFARIN 5 MG TABLET PO (18:44)
[2021-02-21] VITALS (10 sets, daily range): BP systolic 120–140; BP diastolic 63–76; PULSE 55–67; RESP 15–19; TEMP 36.3–37.2; O2SAT 95–98
[2021-02-21] MEDS: lisinopriL 5 MG TABLET PO ×2 (00:01→20:27)
--- NOTE | 2021-02-21 00:36 | PC.NURSE ---
SHIFT: Report received, care assumed 1530. A&Ox4. VSS. Denies pain. [place] for heavy diuresis. Lungs clear, breathing comfortable. 3+ edema to BLE.
--- NOTE | 2021-02-21 03:16 | PC.NURSE ---
Patient is alert and oriented; talkative and detailed in responses. LOWER BRULE with bilateral hearing aids out for the night. Breath sound diminished in right lobes but CTA with RA sat of 96% and denies SOB. HR irregular with telemetry reading of afib CVR w/BBB. Denied nausea. BT present and is passing flatus. Indwelling catheter is patent; urine is clear, light yellow. Bilateral LE edema from toe to upper thigh; also has some scrotal edema. Is able to turn himself in bed. Gait not assessed at this time but reports he uses no assistive device at home. Denied pain. Currently on fluid restriction of 1200cc/24h. Fall risk score is moderate and bed alarm is activated.
[2021-02-21 06:13] LABS: Add Manual Diff / Slide Review NO; Basophils Absolute Auto 100 /uL (0-100); Basophils Percent Auto 2.2 % (0-2); Eosinophils Absolute Auto 500 /uL (0-450); Eosinophils Percent Auto 9.4 % (2-4); Hematocrit 29.5 % (41-53); Hemoglobin 9.8 g/dL (13.5-17.5); INR 2.8 (0.9-1.3); Lymphocytes Absolute Auto 1300 /uL (1100-4500); Lymphocytes Percent Auto 23.4 % (25-40); Mean Corpuscular HGB Conc 33.2 % (30-36); Mean Corpuscular Hemoglobin 33.9 PG (26-34); Mean Corpuscular Volume 102.1 fL (80-100); Monocytes Absolute Auto 600 /uL (0-900); Monocytes Percent Auto 11.2 % (3-14); Neutrophils Absolute Auto 3000 /uL (1500-7000); Neutrophils Percent Auto 53.8 % (50-75); Platelet Count 165 X10^3/uL (150-400); Prothrombin Time 32.3 SECONDS (10.1-12.7); Red Blood Cell Count 2.89 X10^6/uL (4.5-5.9); Red Cell Distribution Width 16.2 % (11.6-14.8); White Blood Cell Count 5.5 X10^3/uL (4.5-11.0)
[2021-02-21 06:28] LABS: Alanine Aminotransferase 21 IU/L (<50); Albumin 3.2 g/dL (3.5-5.0); Albumin Globulin Ratio 0.9 (1.0-2.8); Alkaline Phosphatase 115 U/L (38-126); Aspartate Aminotransferase 35 IU/L (17-59); BUN Creatinine Ratio 12.1 (6-22); Bilirubin Total 1.4 mg/dL (0.2-1.3); Blood Urea Nitrogen 17 mg/dL (9-20); Calcium 8.7 mg/dL (8.4-10.2); Carbon Dioxide 29 mmol/L (22-32); Chloride 106 mmol/L (98-107); Estimated Glomerular Filt Rate 48.5 mL/min (>60); Globulin 3.4 g/dL (1.7-4.1); Glucose 92 mg/dL (80-110); HEMOLYSIS < 15 (0-50); Magnesium 1.9 mg/dL (1.6-2.3); Potassium 3.3 mmol/L (3.4-5.1); Sodium 141 mmol/L (137-145); Total Protein 6.6 g/dL (6.3-8.2)
[2021-02-21 06:51] LABS: TSH w/ Reflex to FT4 5.25 uIU/mL (0.47-4.68)
[2021-02-21 07:05] LABS: Hemoglobin A1C% w Est Avg Glu 5.3 % (4.0-6.0)
[2021-02-21 07:23] LABS: Free T4, Direct Thyroxine 1.25 ng/dL (0.78-2.19)
--- NOTE | 2021-02-21 08:42 | P.PN_ITS ---
Subjective Subjective Date Patient Seen: 02/21/21 Time Patient Seen: 08:42 Interval history: Néstor Maya is an 80 y.o. male admitted yesterday on 02/20 for probable CHF exacerbation in the setting of urinary obstruction. Patient was diuresed in the ED with Lasix 80 mg IV and a de la rosa placed. He states he feels less swollen. Yesterday he was unable to visualize his penis and states he can now see it and that his legs seem to be much less swollen. He denies shortness of breath or chest pain. He initially saw blood in his urine when he was catheterized, but his urine appears to be clear and yellow today. He has a potassium of 3.3, mildly worsening renal function w/a creatinine of 1.4. TSH was elevated with a normal free T4. He is minus 10 kg from yesterday and his UOP was almost 1100 over the past 12 hours. Per the patient, he saw Dr. Sainz and Dr. Sainz's nurse practitioner yesterday, and was then referred to the ED for further evaluation and diuresis. 2 weeks ago, he saw Dr. Ace for urinary complaints of a split stream and was scheduled for a cystoscopy on the day of admission which was cancelled due to the patient's admission here in the hospital. Exam Vital Signs (past 8 hours): - 02/21/21 06:00 02/21/21 07:36 Temperature 98.2 F 97.8 F Pulse Rate 67 62 Respiratory Rate 16 15 Blood Pressure 137/67 135/76 Pulse Oximetry 96 95 Oxygen Delivery Method Room Air Oxygen Flow Rate 0 Narrative Exam Narrative: Gen: Alert, oriented, ill appearing 80 y.o. male, very pleasant HEENT: normocephalic, atraumatic, conjunctiva clear, sclera non-icteric, oral mucosa pink and moist Neck: supple, full ROM, no JVD, trachea is midline Resp: Lungs CTA, non-labored breathing CV: RRR, no murmur or rubs Abd: soft, non-tender, normoactive BTs : De La Rosa draining clear yellow urine, scrotal sac is flat, penis tip is visible, but still w/visible fluid Skin: no lesions or rashes, dry and intact Neuro: Alert and oriented X 4 w/no focal deficits. Speech clear and coherent. Extremities: +3 pitting edema of the lower legs and feet, moves all 4 extremities, is ambulatory, negative Robert?s sign Psyche: normal mood and affect. Objective Labs Result Diagrams: 02/21/21 05:27 02/21/21 05:27 Labs: Laboratory Results - last 24 hr 02/20/21 02/20/21 02/20/21 10:12 10:12 10:38 WBC 6.2 RBC 3.09 L Hgb 10.5 L Hct 31.4 L MCV 101.4 H MCH 34.0 MCHC 33.5 RDW 16.8 H Plt Count 182 Neut % (Auto) 53.3 Lymph % (Auto) 22.7 L [place] % (Auto) 11.6 Eos % (Auto) 8.3 H Baso % (Auto) 4.1 H Neut # (Auto) 3300 Lymph # (Auto) 1400 [place] # (Auto) 700 Eos # (Auto) 500 H Baso # (Auto) 300 H PT INR APTT Sodium 142 Potassium 3.8 Chloride 108 H Carbon Dioxide 27 BUN 17 Creatinine 1.38 H Estimated GFR 49.3 L BUN/Creatinine Ratio 12.3 Glucose 97 Hemoglobin A1c Calcium 9.2 Magnesium Total Bilirubin 1.3 AST 43 ALT 25 Alkaline Phosphatase 130 H Total Creatine Kinase 186 H CK-MB (CK-2) 4.30 H CK-MB (CK-2) Rel Index 2.3 Troponin I 0.012 NT-Pro-B Natriuret Pep 3490 H Total Protein 7.5 Albumin 3.9 Globulin 3.6 Albumin/Globulin Ratio 1.1 Lipase 142 TSH Free T4 Urine Color Urine Appearance Urine pH Ur Specific [place] Urine Protein Urine Glucose (UA) Urine Ketones Urine Occult Blood Urine Nitrate Urine Bilirubin Urine Urobilinogen Ur Leukocyte Esterase Urine RBC Urine WBC Urine Bacteria Ur Culture Indicated? SARS-CoV-2 (PCR) Negative 02/20/21 02/20/21 02/21/21 10:45 10:45 05:27 WBC RBC Hgb Hct MCV MCH MCHC RDW Plt Count Neut % (Auto) Lymph % (Auto) [place] % (Auto) Eos % (Auto) Baso % (Auto) Neut # (Auto) Lymph # (Auto) [place] # (Auto) Eos # (Auto) Baso # (Auto) PT 30.6 H 32.3 H INR 2.7 H 2.8 H APTT 39 H Sodium Potassium Chloride Carbon Dioxide BUN Creatinine Estimated GFR BUN/Creatinine Ratio Glucose Hemoglobin A1c Calcium Magnesium Total Bilirubin AST ALT Alkaline Phosphatase Total Creatine Kinase CK-MB (CK-2) CK-MB (CK-2) Rel Index Troponin I NT-Pro-B Natriuret Pep Total Protein Albumin Globulin Albumin/Globulin Ratio Lipase TSH Free T4 Urine Color [place] Urine Appearance Clear Urine pH 7.0 Ur Specific [place] 1.010 Urine Protein Negative Urine Glucose (UA) Negative Urine Ketones Negative Urine Occult Blood 1+ H Urine Nitrate Negative Urine Bilirubin Negative Urine Urobilinogen 0.2 Ur Leukocyte Esterase Negative Urine RBC 5-10/hpf H Urine WBC None seen Urine Bacteria None seen Ur Culture Indicated? Cult not indicated SARS-CoV-2 (PCR) 02/21/21 02/21/21 02/21/21 05:27 05:27 05:27 WBC 5.5 RBC 2.89 L Hgb 9.8 L Hct 29.5 L MCV 102.1 H MCH 33.9 MCHC 33.2 RDW 16.2 H Plt Count 165 Neut % (Auto) 53.8 Lymph % (Auto) 23.4 L [place] % (Auto) 11.2 Eos % (Auto) 9.4 H Baso % (Auto) 2.2 H Neut # (Auto) 3000 Lymph # (Auto) 1300 [place] # (Auto) 600 Eos # (Auto) 500 H Baso # (Auto) 100 PT INR APTT Sodium 141 Potassium 3.3 L Chloride 106 Carbon Dioxide 29 BUN 17 Creatinine 1.40 H Estimated GFR 48.5 L BUN/Creatinine Ratio 12.1 Glucose 92 Hemoglobin A1c 5.3 Calcium 8.7 Magnesium 1.9 Total Bilirubin 1.4 H AST 35 ALT 21 Alkaline Phosphatase 115 Total Creatine Kinase CK-MB (CK-2) CK-MB (CK-2) Rel Index Troponin I NT-Pro-B Natriuret Pep Total Protein 6.6 Albumin 3.2 L Globulin 3.4 Albumin/Globulin Ratio 0.9 L Lipase TSH Free T4 Urine Color Urine Appearance Urine pH Ur Specific [place] Urine Protein Urine Glucose (UA) Urine Ketones Urine Occult Blood Urine Nitrate Urine Bilirubin Urine Urobilinogen Ur Leukocyte Esterase Urine RBC Urine WBC Urine Bacteria Ur Culture Indicated? SARS-CoV-2 (PCR) 02/21/21 05:27 WBC RBC Hgb Hct MCV MCH MCHC RDW Plt Count Neut % (Auto) Lymph % (Auto) [place] % (Auto) Eos % (Auto) Baso % (Auto) Neut # (Auto) Lymph # (Auto) [place] # (Auto) Eos # (Auto) Baso # (Auto) PT INR APTT Sodium Potassium Chloride Carbon Dioxide BUN Creatinine Estimated GFR BUN/Creatinine Ratio Glucose Hemoglobin A1c Calcium Magnesium Total Bilirubin AST ALT Alkaline Phosphatase Total Creatine Kinase CK-MB (CK-2) CK-MB (CK-2) Rel Index Troponin I NT-Pro-B Natriuret Pep Total Protein Albumin Globulin Albumin/Globulin Ratio Lipase TSH 5.25 H Free T4 1.25 Urine Color Urine Appearance Urine pH Ur Specific [place] Urine Protein Urine Glucose (UA) Urine Ketones Urine Occult Blood Urine Nitrate Urine Bilirubin Urine Urobilinogen Ur Leukocyte Esterase Urine RBC Urine WBC Urine Bacteria Ur Culture Indicated? SARS-CoV-2 (PCR) [facility] Medical History Atrial fibrillation Elevated PSA (05/16/12) Hypertension (05/16/12) Lower extremity edema Obstructive uropathy Urinary retention Surgical History H/O inguinal hernia repair Family History Mother Cancer Father Hypertension Social History household members: significant other Smoking Status: Former smoker Assessment & Plan Assessment & Plan narrative: 1. Acute on chronic diastolic heart failure, present on admission * Chads vasc2 score is 5 * patient with massive volume overload in his lower extremities and has significant scrotal edema has improved. He has lost over 10 kg since admission yesterday. He has no acute respiratory failure and fairly minimal respiratory symptoms at this time. * he was given 80 mg of IV Lasix in the emergency room with massive output, a De La Rosa catheter was placed as well. Given his chronic urinary obstruction his volume overload is likely secondary to both his acute heart failure and urinary retention. He had a slight rise in creatinine and a mild lowering of his GFR. Continue gentle diuresis today with lasix 40 mg IV X 1 * strict intake and output, daily weights * Continue 1.2 L fluid restriction * obtain TTE pending, last one done a year ago. 2. Acute on Chronic urinary obstruction * continue de la rosa catheter, flomax. Monitor for post obstructive diuresis and keep de la rosa catheter until outpatient follow up with urology. 3. Likely chronic atrial fibrillation though exact type is not fully known, on anticoagulation * INR is therapeutic at 2.8 * continue atenolol and current dose of warfarin 4. Mediastinal mass and bilateral pleural effusions * possible new malignancy noted on CT. Bilateral pleural effusions on CT as well. Probably related to volume overload. Would recommend repeat imaging as an outpatient after diuresis, with possible referral for biopsy if desired. Code: Full, surrogate decision maker is patient's daughterIsis Dispo: admit as observation DVT: on warfarin. COVID-19 COVID-19 status: Negative Result date/Date tested (Pos, Neg/Pending): 02/20/21 Scores CHADS-VASc Congestive heart failure: yes Hypertension: yes Age 75 years or older: yes Diabetes mellitus: no Stroke, TIA, or TE: no Vascular disease: yes Age 65 to 74 years: no Sex category (female): Male CHADS-VASc Score: 5
[2021-02-21] MEDS: POTASSIUM CHLORIDE 20 MEQ TAB PO ×2 (09:05)
[2021-02-21] MEDS: TAMSULOSIN 0.4 MG CAPSULE PO (09:05)
[2021-02-21] MEDS: POTASSIUM CHLORIDE IN WATER 10 MEQ/100 ML PIGGYBACK 100 MEQ IV ×4 (09:05→13:31)
[2021-02-21] MEDS: SODIUM CHLORIDE 0.9% FLUSH 10 ML IV ×2 (09:06→20:27)
[2021-02-21] MEDS: FUROSEMIDE 40 MG/4 ML VIAL IV (09:08)
--- NOTE | 2021-02-21 10:41 | PC.NURSE ---
Patient states that from August till now, he has gained 30 pounds, he sais that he was up to 230 pounds before coming to ER. Current weight now is 212. Patient given 40mg of iv lasix, his de la rosa catheter is putting out yellow urine. Potassium this am 3.3. Patient given a total of 40meq of oral potassium and he is getting 40meq iv potassium bags, the second one is infusing at 75cc/hr as patients arm is tender. They are infusing concurrently with normal saline. Patient denies any discomfort, he has 3+ edema from Scrotum to feet. Non-pitting at this time. 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 He is getting his echo now.
--- NOTE | 2021-02-21 15:47 | CM.DANOTE ---
Discharge Planning/Care Management DCP: assessment: case received, EMR reviewed and met this afternoon with pt. Introduced self and role. Pt is an 80 year old male who admitted yesterday afternoon to care of hospitalist team. PCP: Dr. Von Rg Merchandising Intern: Dr. Sainz. (pt had his first appt with him today and was sent directly to the ER). Payer: Medicare and for Life Admission status: OBS on 02/20 with a change to INPT on 02/21: confirmed by UR RN Dasha LENNON: daughter Isis [facility]: [phone] Life Partner (34 years so far) is Martina Hawkins: cell [phone] and home: [phone]. Pt says they live in their own homes within a mile or so of each other. (we live together when we go to our place in [place] and apart when up here. that works well for us) Assured pt that DCP team will follow to assist with d/c issues and options as these unfold. CM Discharge Assessment Start: 02/21/21 15:46 Freq: Status: Active Protocol: Document 02/21/21 15:46 ITV (Rec: 02/21/21 15:46 ITV [id number]) Discharge Planning Assessment Advance Directives? No History Provided By Patient,Medical Record Prior Living Arrangements House Household Members none Independent with ADL's Yes Is patient alert and oriented? Yes
[2021-02-21] MEDS: atenoloL 50 MG TABLET PO (16:26)
[2021-02-21] MEDS: WARFARIN 5 MG TABLET PO (16:26)
[2021-02-22] VITALS (9 sets, daily range): BP systolic 104–134; BP diastolic 55–67; PULSE 50–68; RESP 14–18; TEMP 36.1–36.8; O2SAT 95–99
[2021-02-22 05:59] LABS: Add Manual Diff / Slide Review NO; Basophils Absolute Auto 100 /uL (0-100); Basophils Percent Auto 1.5 % (0-2); Eosinophils Absolute Auto 600 /uL (0-450); Eosinophils Percent Auto 9.8 % (2-4); Hematocrit 29.7 % (41-53); Hemoglobin 10.1 g/dL (13.5-17.5); Lymphocytes Absolute Auto 1600 /uL (1100-4500); Mean Corpuscular HGB Conc 33.9 % (30-36); Mean Corpuscular Hemoglobin 34.1 PG (26-34); Mean Corpuscular Volume 100.7 fL (80-100); Monocytes Absolute Auto 700 /uL (0-900); Monocytes Percent Auto 12.1 % (3-14); Neutrophils Absolute Auto 3100 /uL (1500-7000); Neutrophils Percent Auto 50.6 % (50-75); Platelet Count 158 X10^3/uL (150-400); Red Blood Cell Count 2.95 X10^6/uL (4.5-5.9); Red Cell Distribution Width 15.9 % (11.6-14.8); White Blood Cell Count 6.1 X10^3/uL (4.5-11.0)
[2021-02-22 06:00] LABS: INR 2.6 (0.9-1.3); Prothrombin Time 29.9 SECONDS (10.1-12.7)
[2021-02-22 06:07] LABS: Alanine Aminotransferase 20 IU/L (<50); Albumin 3.1 g/dL (3.5-5.0); Albumin Globulin Ratio 0.9 (1.0-2.8); Alkaline Phosphatase 112 U/L (38-126); Aspartate Aminotransferase 33 IU/L (17-59); BUN Creatinine Ratio 15.9 (6-22); Bilirubin Total 1.4 mg/dL (0.2-1.3); Blood Urea Nitrogen 23 mg/dL (9-20); Calcium 8.6 mg/dL (8.4-10.2); Carbon Dioxide 28 mmol/L (22-32); Chloride 106 mmol/L (98-107); Estimated Glomerular Filt Rate 46.6 mL/min (>60); Globulin 3.5 g/dL (1.7-4.1); Glucose 88 mg/dL (80-110); HEMOLYSIS < 15 (0-50); Magnesium 1.8 mg/dL (1.6-2.3); Potassium 3.8 mmol/L (3.4-5.1); Sodium 140 mmol/L (137-145); Total Protein 6.6 g/dL (6.3-8.2)
[2021-02-22] MEDS: POTASSIUM CHLORIDE 20 MEQ TAB PO (09:14)
[2021-02-22] MEDS: FUROSEMIDE 40 MG/4 ML VIAL IV (09:14)
[2021-02-22] MEDS: TAMSULOSIN 0.4 MG CAPSULE PO (09:14)
[2021-02-22] MEDS: METOPROLOL IR 25 MG TABLET PO ×2 (09:14→21:29)
[2021-02-22] MEDS: SODIUM CHLORIDE 0.9% FLUSH 10 ML IV ×2 (09:15→21:30)
--- NOTE | 2021-02-22 14:56 | PM.PN.1 ---
Subjective Subjective Date Patient Seen: 02/22/21 Time Patient Seen: 08:00 Interval history: Today he feels improved. He denies shortness of breath, no chest pain. He continues to have significant lower extremity edema, but this is improving. Exam Vital Signs (past 8 hours): - 02/22/21 07:40 02/22/21 10:55 02/22/21 14:15 Temperature 98.0 F 98.2 F Pulse Rate 68 55 L Respiratory Rate 16 14 Blood Pressure 104/55 L 116/67 Pulse Oximetry 95 98 99 Oxygen Delivery Method Room Air Oxygen Flow Rate 0 Narrative Exam Narrative: Gen: no acute distress Resp: lungs clear bilaterally CV: regular rate and rhythm with no murmurs Abd: soft, non-tender, normal bowel sounds : De La Rosa draining clear yellow urine Skin: no lesions or rashes Neuro: no noted focal deficits Extremities: +2 pitting edema of the lower legs and feet, moves all 4 extremities Psych: normal mood and affect. Objective Labs Result Diagrams: 02/22/21 05:35 02/22/21 05:35 Labs: Laboratory Results - last 24 hr 02/22/21 02/22/21 02/22/21 05:35 05:35 05:35 WBC 6.1 RBC 2.95 L Hgb 10.1 L Hct 29.7 L MCV 100.7 H MCH 34.1 H MCHC 33.9 RDW 15.9 H Plt Count 158 Neut % (Auto) 50.6 Lymph % (Auto) 26.0 [place] % (Auto) 12.1 Eos % (Auto) 9.8 H Baso % (Auto) 1.5 Neut # (Auto) 3100 Lymph # (Auto) 1600 [place] # (Auto) 700 Eos # (Auto) 600 H Baso # (Auto) 100 PT 29.9 H INR 2.6 H Sodium 140 Potassium 3.8 Chloride 106 Carbon Dioxide 28 BUN 23 H Creatinine 1.45 H Estimated GFR 46.6 L BUN/Creatinine Ratio 15.9 Glucose 88 Calcium 8.6 Magnesium 1.8 Total Bilirubin 1.4 H AST 33 ALT 20 Alkaline Phosphatase 112 Total Protein 6.6 Albumin 3.1 L Globulin 3.5 Albumin/Globulin Ratio 0.9 L PFSH Medical History Atrial fibrillation Elevated PSA (05/16/12) Hypertension (05/16/12) Lower extremity edema Obstructive uropathy Urinary retention Surgical History H/O inguinal hernia repair Family History Mother Cancer Father Hypertension Social History household members: none Smoking Status: Former smoker Assessment & Plan Assessment & Plan narrative: 1. Acute on chronic diastolic heart failure with pulmonary hypertension, present on admission -patient with massive volume overload in his lower extremities and has significant scrotal edema has improved -plan to continue lasix 40mg IV, and redose at night if creatinine remains stable -strict intake and output, daily weights -Continue 1.2 L fluid restriction -ECHO shows normal EF, RVSP of 56 2. Acute on Chronic urinary obstruction -continue de la rosa catheter, flomax. Monitor for post obstructive diuresis and keep de la rosa catheter until outpatient follow up with urology. 3. Likely chronic atrial fibrillation though exact type is not fully known, on anticoagulation -INR is therapeutic at 2.8 -switch atenolol to metoprolol and continue coumadin 4. Mediastinal mass and bilateral pleural effusions -possible new malignancy noted on CT. Bilateral pleural effusions on CT as well. Would recommend repeat imaging as an outpatient after diuresis, with possible referral for biopsy if desired. Code: Full, surrogate decision maker is patient's Isis ron Dispo: admit as observation DVT: on warfarin.
[2021-02-22 15:50] LABS: BUN Creatinine Ratio 15.6 (6-22); Blood Urea Nitrogen 25 mg/dL (9-20); Calcium 8.8 mg/dL (8.4-10.2); Carbon Dioxide 31 mmol/L (22-32); Chloride 105 mmol/L (98-107); Estimated Glomerular Filt Rate 41.6 mL/min (>60); Glucose 101 mg/dL (80-110); HEMOLYSIS < 15 (0-50); Magnesium 1.9 mg/dL (1.6-2.3); Potassium 3.9 mmol/L (3.4-5.1); Sodium 140 mmol/L (137-145)
[2021-02-22] MEDS: WARFARIN 5 MG TABLET PO (16:32)
[2021-02-23] VITALS (12 sets, daily range): BP systolic 112–130; BP diastolic 53–68; PULSE 51–64; RESP 16–17; TEMP 36.1–37; O2SAT 94–97
[2021-02-23 05:52] LABS: Add Manual Diff / Slide Review NO; Basophils Absolute Auto 100 /uL (0-100); Basophils Percent Auto 2.3 % (0-2); Eosinophils Absolute Auto 700 /uL (0-450); Eosinophils Percent Auto 10.7 % (2-4); Hematocrit 30.7 % (41-53); Hemoglobin 10.4 g/dL (13.5-17.5); INR 2.5 (0.9-1.3); Lymphocytes Absolute Auto 1500 /uL (1100-4500); Mean Corpuscular HGB Conc 33.8 % (30-36); Mean Corpuscular Hemoglobin 33.9 PG (26-34); Mean Corpuscular Volume 100.2 fL (80-100); Monocytes Absolute Auto 700 /uL (0-900); Monocytes Percent Auto 10.7 % (3-14); Neutrophils Absolute Auto 3200 /uL (1500-7000); Neutrophils Percent Auto 51.3 % (50-75); Platelet Count 163 X10^3/uL (150-400); Prothrombin Time 28.1 SECONDS (10.1-12.7); Red Blood Cell Count 3.07 X10^6/uL (4.5-5.9); White Blood Cell Count 6.2 X10^3/uL (4.5-11.0)
[2021-02-23 06:03] LABS: Alanine Aminotransferase 19 IU/L (<50); Albumin 3.1 g/dL (3.5-5.0); Albumin Globulin Ratio 0.9 (1.0-2.8); Alkaline Phosphatase 110 U/L (38-126); Aspartate Aminotransferase 32 IU/L (17-59); BUN Creatinine Ratio 19.1 (6-22); Bilirubin Total 1.2 mg/dL (0.2-1.3); Blood Urea Nitrogen 29 mg/dL (9-20); Calcium 8.5 mg/dL (8.4-10.2); Carbon Dioxide 30 mmol/L (22-32); Chloride 106 mmol/L (98-107); Estimated Glomerular Filt Rate 44.1 mL/min (>60); Globulin 3.4 g/dL (1.7-4.1); Glucose 87 mg/dL (80-110); HEMOLYSIS < 15 (0-50); Magnesium 1.8 mg/dL (1.6-2.3); Potassium 3.8 mmol/L (3.4-5.1); Sodium 139 mmol/L (137-145); Total Protein 6.5 g/dL (6.3-8.2)
[2021-02-23] MEDS: TAMSULOSIN 0.4 MG CAPSULE PO (09:20)
[2021-02-23] MEDS: FUROSEMIDE 40 MG/4 ML VIAL IV (09:20)
[2021-02-23] MEDS: POTASSIUM CHLORIDE 20 MEQ TAB PO (09:20)
[2021-02-23] MEDS: SODIUM CHLORIDE 0.9% FLUSH 10 ML IV ×2 (09:21→20:25)
[2021-02-23] MEDS: METOPROLOL IR 25 MG TABLET PO ×2 (09:21→20:25)
--- NOTE | 2021-02-23 11:08 | P.PN_ITS ---
Subjective Subjective Date Patient Seen: 02/23/21 Time Patient Seen: 08:00 Interval history: Today he has no complaints. No shortness of breath, no chest pain. He feels his leg swelling continues to decrease. Exam Vital Signs (past 8 hours): - 02/23/21 04:00 02/23/21 05:00 02/23/21 08:00 Temperature 98.6 F Pulse Rate 55 L Respiratory Rate 16 Blood Pressure 125/58 L Pulse Oximetry 96 96 94 02/23/21 09:05 Temperature 97.8 F Pulse Rate 63 Respiratory Rate 17 Blood Pressure 130/68 Pulse Oximetry 94 Oxygen Delivery Method Room Air Oxygen Flow Rate 0 Narrative Exam Narrative: Gen: no acute distress Resp: lungs clear bilaterally CV: regular rate and rhythm with no murmurs Abd: soft, non-tender, normal bowel sounds : De La Rosa draining clear yellow urine Skin: no lesions or rashes Neuro: no noted focal deficits Extremities: 1+ pitting edema of the lower legs and feet, moves all 4 extremities Psych: normal mood and affect. Objective Labs Result Diagrams: 02/23/21 05:35 02/23/21 05:35 Labs: Laboratory Results - last 24 hr 02/22/21 02/23/21 02/23/21 15:30 05:35 05:35 WBC 6.2 RBC 3.07 L Hgb 10.4 L Hct 30.7 L MCV 100.2 H MCH 33.9 MCHC 33.8 RDW 16.0 H Plt Count 163 Neut % (Auto) 51.3 Lymph % (Auto) 25.0 [place] % (Auto) 10.7 Eos % (Auto) 10.7 H Baso % (Auto) 2.3 H Neut # (Auto) 3200 Lymph # (Auto) 1500 [place] # (Auto) 700 Eos # (Auto) 700 H Baso # (Auto) 100 PT 28.1 H INR 2.5 H Sodium 140 Potassium 3.9 Chloride 105 Carbon Dioxide 31 BUN 25 H Creatinine 1.60 H Estimated GFR 41.6 L BUN/Creatinine Ratio 15.6 Glucose 101 Calcium 8.8 Magnesium 1.9 Total Bilirubin AST ALT Alkaline Phosphatase Total Protein Albumin Globulin Albumin/Globulin Ratio 02/23/21 05:35 WBC RBC Hgb Hct MCV MCH MCHC RDW Plt Count Neut % (Auto) Lymph % (Auto) [place] % (Auto) Eos % (Auto) Baso % (Auto) Neut # (Auto) Lymph # (Auto) [place] # (Auto) Eos # (Auto) Baso # (Auto) PT INR Sodium 139 Potassium 3.8 Chloride 106 Carbon Dioxide 30 BUN 29 H Creatinine 1.52 H Estimated GFR 44.1 L BUN/Creatinine Ratio 19.1 Glucose 87 Calcium 8.5 Magnesium 1.8 Total Bilirubin 1.2 AST 32 ALT 19 Alkaline Phosphatase 110 Total Protein 6.5 Albumin 3.1 L Globulin 3.4 Albumin/Globulin Ratio 0.9 L PFSH Medical History Atrial fibrillation Elevated PSA (05/16/12) Hypertension (05/16/12) Lower extremity edema Obstructive uropathy Urinary retention Surgical History H/O inguinal hernia repair Family History Mother Cancer Father Hypertension Social History household members: none Smoking Status: Former smoker Assessment & Plan Assessment & Plan narrative: 1. Acute on chronic diastolic heart failure with pulmonary hypertension, present on admission -patient with massive volume overload in his lower extremities and has significant scrotal edema has improved -plan to continue lasix 40mg IV, add spironolactone per cardiology recommendations -switched atenolol to metoprolol and stopped lisinopril for now -strict intake and output, daily weights -Continue 1.2 L fluid restriction -ECHO shows normal EF, RVSP of 56 -patient has -13L fluid balance and continues to diurese well 2. MARLIN -mild, with creatinine peaking at 1.6, baseline unknown was 1.1 in 2018, on admission was 1.38 -monitor creatinine closely, but down to 1.52 on 02/23 3. Acute on Chronic urinary obstruction -continue de la rosa catheter, flomax. Monitor for post obstructive diuresis and keep de la rosa catheter until outpatient follow up with urology. 4. Likely chronic atrial fibrillation though exact type is not fully known, on anticoagulation -INR is therapeutic at 2.8 -switch atenolol to metoprolol and continue coumadin 5. Mediastinal mass and bilateral pleural effusions -possible new malignancy noted on CT. Bilateral pleural effusions on CT as well. Would recommend repeat imaging as an outpatient after diuresis, with possible referral for biopsy if desired. Code: Full, surrogate decision maker is patient's daughterIsis Dispo: admit as observation DVT: on warfarin.
[2021-02-23] MEDS: SPIRONOLACTONE 25 MG TABLET PO (14:23)
--- NOTE | 2021-02-23 14:25 | PC.NURSE ---
A&Ox4,able to make needs Known birgit and cooperative with all care. RA sats 94-94% Tele AFIB 50-60 with R BBB [place] cath patent and draining adequate amount to diereses, Maintained strict fluid restriction. Ambulated to BR with SBA for Bowel movement this am. Right forearm Saline lock patent
[2021-02-23] MEDS: WARFARIN 5 MG TABLET PO (16:32)
--- NOTE | 2021-02-23 17:20 | PC.NURSE ---
Addendum entered by Priti Kimbrough R.N. 02/23/21 20:57: HR 64. Metoprolol given. Blood pressure as recorded by TOW DRIVER. Pt remains compliant with fluid restriction. Moves self independently in bed. Calm, cooperative, verbalizes no concerns or complaints. Pedal pulses present with doppler BL. Pitting edema to BL lower extremities. Original Note: Pt awake, alert resting quietly in bed. Is able to move independently in bed and position self. Denies pain or shortness of breath. Telemetry in place. Pitting edema to BL LE's 1-2+. Pt compliant with fluid restriction. [place] to gravity with clear, yellow urine and slight sediment in tubing. Encouraged to call for needs. Reports hearty appetite.
[2021-02-24] VITALS: BP 114/49; PULSE 52; RESP 14; TEMP 36.6; O2SAT 96
[2021-02-24 04:00] VITALS: O2SAT 96
[2021-02-24 05:32] VITALS: BP 119/66; PULSE 52; RESP 12; TEMP 36.2; O2SAT 96
[2021-02-24 05:49] LABS: Hematocrit 31.5 % (41-53); Hemoglobin 10.8 g/dL (13.5-17.5); Mean Corpuscular HGB Conc 34.2 % (30-36); Mean Corpuscular Hemoglobin 34.4 PG (26-34); Mean Corpuscular Volume 100.6 fL (80-100); Platelet Count 177 X10^3/uL (150-400); Red Blood Cell Count 3.13 X10^6/uL (4.5-5.9); White Blood Cell Count 7.2 X10^3/uL (4.5-11.0)
[2021-02-24 05:56] LABS: BUN Creatinine Ratio 22.3 (6-22); Blood Urea Nitrogen 31 mg/dL (9-20); Calcium 8.8 mg/dL (8.4-10.2); Carbon Dioxide 29 mmol/L (22-32); Chloride 106 mmol/L (98-107); Estimated Glomerular Filt Rate 48.9 mL/min (>60); Glucose 94 mg/dL (80-110); HEMOLYSIS 18 (0-50); Magnesium 1.8 mg/dL (1.6-2.3); Potassium 3.9 mmol/L (3.4-5.1); Sodium 140 mmol/L (137-145)
[2021-02-24 08:35] VITALS: BP 140/71; PULSE 52; RESP 16; TEMP 35.8; O2SAT 96
[2021-02-24] MEDS: SODIUM CHLORIDE 0.9% FLUSH 10 ML IV (08:58)
[2021-02-24] MEDS: SPIRONOLACTONE 25 MG TABLET PO (08:58)
[2021-02-24] MEDS: FUROSEMIDE 40 MG TABLET PO (08:58)
[2021-02-24] MEDS: TAMSULOSIN 0.4 MG CAPSULE PO (08:58)
[2021-02-24] MEDS: METOPROLOL IR 25 MG TABLET PO (08:59)
[2021-02-24 11:43] VITALS: O2SAT 98
--- NOTE | 2021-02-24 11:45 | PC.NURSE ---
Catheter bag changed to leg bag; fine crackles to posterior blls; RA=98%; Tele A fib; 1+ edema to BL ankles; d/c instructions include f/u care with PCP, cardiology, and Urology; catheter care; s/sx of worsening CHF, including color CHF form for refrigerator; pt d/c at 1130 via wheelchair with personal belongings in hand
--- NOTE | 2021-02-24 15:52 | PM.DS.1 ---
History of Present Illness History of Present Illness Chief complaint: BI LEG SWELLING Narrative: Per Dr. 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 He has gained close to 40 lb over the past 6 months, with slow gradual weight gain and worsening fatigue and weakness. He only admits to lower extremity edema, scrotal edema, and early satiety. He denies any shortness of breath though he walks generally very slowly and paces himself when going to the grocery store. He denies any chest pain, palpitations, headaches, vision changes, chest pressure, dyspnea on exertion, orthopnea. In the emergency room, the patient was mildly hypertensive, the remainder of his vital signs were unremarkable. Patient was saturating well on room air. Initial labs were notable for a mild anemia with a hemoglobin of 10.5 with an MCV of 101.4. INR was therapeutic at 2.7. Chemistries revealed a mild elevation is creatinine to 1.38, his usual baseline appears to be around 1.1. The remainder of his chemistries were unremarkable. Troponin was within normal limits at 0.012. ProBNP was elevated at 3490. Urinalysis was performed which showed 1+ occult blood, 5-10 rbc's, the patient is already scheduled for an outpatient cystoscopy per Urology documentation. COVID-19 testing was negative. Chest x-ray showed cardiomegaly with a right-sided pleural effusion, possibly loculated so CT was recommended. CT of his chest with contrast showed bilateral pleural effusions, right greater than left without loculation but did show some mild pleural thickening possibly. There also superimposed consolidations most probably due to atelectasis but could not rule out infectious etiologies. There was also hilar adenopathy as well as a paramediastinal mass concerning for possible malignancy. Discharge Providers Provider Date of admission: 02/21/21 09:30 Discharge Date: 02/24/21 Primary care physician: Von Rg MD Discharge provider: Rex Stephens MD Summary Hospital Course Discharge Diagnosis: 1. Acute on chronic diastolic heart failure with pulmonary hypertension 2. Acute kidney injury 3. Acute on chronic urinary obstruction 4. Atrial fibrillation, likely chronic 5. Concern for possible mediastinal mass on lung imaging Hospital Course: Mr. Soto was admitted with volume overload and shortness of breath. He was found have significant edema. ECHO showed normal EF 60-65%, RVSP of 56, dilated LA and RA, mild MR and AR. He did get a CT chest which showed bilateral pleural effusions. He also had a question of possible mediastinal mass and lymphadenopathy, though recommendation was to repeat this study with further evaluation after diuresis and clear evaluation. In the hospital he diuresed well on lasix and spironolactone. He had MARLIN with creatinine of 1.6 that improved to 1.39 on discharge. He also had difficulty with urinating so had de la rosa placement and was recommended to follow up with pulmonology. Overall he diuresed well with negative 15.8L balance during his admission. His discharge weight was 93.5kg, though he still has mild edema on exam and dry weight is likely lower. He was referred back to see his otter trawler boatswain. Encouraged to follow up closely with his PCP for his medical problems and question of mass, and to follow up with his urologist for his urinary obstruction. Exam Vital Signs (past 8 hours): - 02/24/21 08:35 02/24/21 11:43 Temperature 96.4 F L Pulse Rate 52 L Respiratory Rate 16 Blood Pressure 140/71 Pulse Oximetry 96 98 Oxygen Delivery Method Room Air Oxygen Flow Rate 0 Narrative Exam Narrative: Gen: no acute distress Resp: lungs clear bilaterally CV: regular rate and rhythm with no murmurs Abd: soft, non-tender, normal bowel sounds : De La Rosa draining clear yellow urine Skin: no lesions or rashes Neuro: no noted focal deficits Extremities: 1+ pitting edema of the lower legs and feet, moves all 4 extremities Psych: normal mood and affect. Objective Labs Result Diagrams: 02/24/21 05:30 02/24/21 05:30 Labs: Laboratory Results - last 24 hr 02/24/21 02/24/21 05:30 05:30 WBC 7.2 RBC 3.13 L Hgb 10.8 L Hct 31.5 L MCV 100.6 H MCH 34.4 H MCHC 34.2 RDW 16.0 H Plt Count 177 Sodium 140 Potassium 3.9 Chloride 106 Carbon Dioxide 29 BUN 31 H Creatinine 1.39 H Estimated GFR 48.9 L BUN/Creatinine Ratio 22.3 H Glucose 94 Calcium 8.8 Magnesium 1.8 PFSH Medical History Atrial fibrillation Elevated PSA (05/16/12) Hypertension (05/16/12) Lower extremity edema Obstructive uropathy Urinary retention Surgical History H/O inguinal hernia repair Family History Mother Cancer Father Hypertension Social History household members: none Smoking Status: Former smoker Discharge Plan Discharge Plan Patient Disposition: Home Provider Discharge Comment: Mr. Soto came in to the hospital with difficulty urinating and shortness of breath. He was found to have congestive heart failure and he was started on medications for this. He also had a couple of his medications stopped. He also had a de la rosa placed for his difficulty with urine retention which he should keep in place until seeing his urologist. He should follow up with his otter trawler boatswain and urologist in the next 1-2 weeks. Avoid salty foods, and monitor weight closely to make sure he is not retaining more fluid. Discharge orders & Medications Prescriptions: New furosemide 40 mg Tablet 40 mg PO DAILY Qty: 30 RF: 0 spironolactone 25 mg Tablet 25 mg PO DAILY Qty: 30 RF: 0 metoprolol succinate 25 mg tablet extended release 24 hr 25 mg PO DAILY Qty: 30 RF: 0 Continued tamsulosin 0.4 mg capsule 0.4 mg PO DAILY RF: 0 warfarin 5 mg tablet 5 mg PO DAILY RF: 0 Discontinued lisinopril 5 MG tablet 5 mg PO QDAY Qty: 90 RF: 1 potassium chloride 20 mEq tablet,ER particles/crystals 20 meq PO DAILY RF: 0 furosemide 40 mg tablet 40 mg PO DAILY RF: 0 atenolol 50 mg tablet 50 mg PO DAILY RF: 0 Follow up/Referrals: Von Rg MD [Primary Care Provider] - Javier Sainz MD [Physician] - (CHF exacerbation discharged on lasix and aldactone) Mike Ace MD [Physician] - (urinary retention and discharged from hospital with de la rosa) Diet/Activity/Treatments Diet: Low-sodium Catheter: 2-way De La Rosa Visit Report/Discharge Packet Instructions: How to Care for Your De La Rosa Catheter -- Male, DI for Heart Failure, DI for Urinary Retention in Men Discharge Data Primary Care Provider: Von Rg MIPS - DC The patient has current or prior documentation of left ventricular ejection fraction (LVEF) less than 40%, or moderate or severely depressed left ventricular systolic function.: No
== END 2021-02-24 11:47 | disposition home or self-care (01) | DRG 292 ==
LOC: ED 13:20 → AC 13:43
PROVIDERS: Internal Medicine; Admitting Provider Internal Medicine; Emergency Provider Emergency Medicine; Family Provider Internal Medicine; PCP Internal Medicine; Visit Provider Internal Medicine
DX: I11.0 Hypertensive heart disease with heart failure (principal); I48.20 Chronic atrial fibrillation, unspecified; J90 Pleural effusion, not elsewhere classified; N17.9 Acute kidney failure, unspecified; I50.33 Acute on chronic diastolic (congestive) heart failure; R93.89 Abnormal findings on diagnostic imaging of other specified body structures; I27.20 Pulmonary hypertension, unspecified; R33.9 Retention of urine, unspecified; Z20.822 Contact with and (suspected) exposure to COVID-19; Z87.891 Personal history of nicotine dependence; Z79.01 Long term (current) use of anticoagulants
CPT/HCPCS: 36415; 51702; 51798; 71045; 71260; 80048; 80053; 81001; 82550; 82553; 83036; 83690; 83735; 83880; 84439; 84443; 84484; 85025; 85027; 85610; 85730; 87635; 93005; 93010; 93306; 96374; 99285; C9803; G0378; J1940

== ENCOUNTER → 2021-03-07 13:06 | Outpatient (CLI) | payer MEDICARE, OTHER, SELFPAY ==
[2021-02-20 14:21] VITALS: BMI 29.1
[2021-03-07 13:27] LABS: Bacteria Urine None Seen
[2021-03-07 13:57] LABS: Appearance Urine UA CLEAR; Bilirubin Urine UA NEGATIVE (NEGATIVE); Color Urine UA YELLOW; Glucose Urine UA NEGATIVE (Negative); Ketones Urine UA NEGATIVE (NEGATIVE); Leukocyte Esterase Urine UA TRACE (NEGATIVE); Nitrite Urine UA NEGATIVE (Negative); Occult Blood Urine UA 3+ (Negative); Protein Urine UA 2+ (Negative); pH Urine UA 7.5 (4.5-8.0)
[2021-03-07 14:05] LABS: Culture Indicated Urine Specimen Cultured; RBC Urine 10-30/HPF (0-5/HPF); WBC Urine 5-10/HPF (0-5/HPF)
== END ==
PROVIDERS: Family Provider Internal Medicine; PCP Internal Medicine; Referring Provider Urology; Visit Provider Urology
DX: N39.43 Post-void dribbling (principal); N39.490 Overflow incontinence; R33.8 Other retention of urine; R33.9 Retention of urine, unspecified
CPT/HCPCS: 81001; 87077; 87086; 87147; 87186

== ENCOUNTER → 2021-03-12 10:00 | Outpatient (CLI) | payer MEDICARE, OTHER, SELFPAY ==
[2021-02-20 14:21] VITALS: BMI 29.1
[2021-03-12 11:50] LABS: BUN Creatinine Ratio 13.3 (6-22); Blood Urea Nitrogen 22 mg/dL (9-20); Calcium 9.1 mg/dL (8.4-10.2); Carbon Dioxide 27 mmol/L (22-32); Chloride 105 mmol/L (98-107); Glucose 92 mg/dL (80-110); HEMOLYSIS < 15 (0-50); Potassium 4.2 mmol/L (3.4-5.1); Sodium 139 mmol/L (137-145)
== END ==
PROVIDERS: Family Provider Internal Medicine; PCP Internal Medicine; Referring Provider Urology; Visit Provider Urology
DX: R33.8 Other retention of urine (principal); N39.43 Post-void dribbling; N39.490 Overflow incontinence; N18.9 Chronic kidney disease, unspecified; N13.30 Unspecified hydronephrosis
CPT/HCPCS: 36415; 51798; 52000; 80048; 99214

== ENCOUNTER → 2021-04-05 11:32 | Outpatient (CLI) | payer MEDICARE, OTHER, SELFPAY ==
[2021-02-20 14:21] VITALS: BMI 29.1
--- NOTE | 2021-04-05 | DI.RAD.S_ITS ---
PROCEDURE: XR CHEST 2V INDICATIONS: SHORTNESS OF BREATH TECHNIQUE: 2 views of the chest were acquired. COMPARISON: [facility], CT, CT CHEST W CON, 02/20/2021, 11:35. [facility], CR, XR CHEST 1V, 02/20/2021, 10:09. FINDINGS: Surgical changes and devices: None. Lungs and pleura: Moderate size right pleural effusion, similar appearance to prior chest radiograph. There is adjacent passive atelectasis. No pneumothorax. 2.9 cm nodular opacity in the anterior chest seen on lateral view. Mediastinum: Mediastinal contours are normal. Heart size is normal. Bones and chest wall: No suspicious bony abnormalities. Degenerative changes of the spine and shoulders. Soft tissues appear unremarkable. IMPRESSION: 1. Moderate right-sided pleural effusion. Appearance is similar to 02/20/2021. 2. On lateral view, a 2.9 nodular opacity projects over the anterior chest, potentially representing a previously seen anterior mediastinal lymph node/mass. Dictated by: Jese Flynn M.D. on 04/05/2021 at 11:32 Approved by: Jese Flynn M.D. on 04/05/2021 at 11:38
[2021-04-05 13:34] LABS: BUN Creatinine Ratio 19.1 (6-22); Blood Urea Nitrogen 25 mg/dL (9-20); Calcium 9.5 mg/dL (8.4-10.2); Carbon Dioxide 24 mmol/L (22-32); Chloride 107 mmol/L (98-107); Estimated Glomerular Filt Rate 52.3 mL/min (>60); Glucose 97 mg/dL (80-110); HEMOLYSIS < 15 (0-50); Potassium 4.5 mmol/L (3.4-5.1); Sodium 140 mmol/L (137-145)
== END ==
PROVIDERS: Family Provider Internal Medicine; PCP Internal Medicine; Referring Provider Internal Medicine Cardiovascular Disease; Visit Provider Internal Medicine Cardiovascular Disease
DX: R33.8 Other retention of urine (principal); I50.32 Chronic diastolic (congestive) heart failure; J90 Pleural effusion, not elsewhere classified
CPT/HCPCS: 36415; 71046; 80048

== ENCOUNTER → 2021-04-11 12:16 | Outpatient (CLI) | payer MEDICARE, OTHER, SELFPAY ==
[2021-02-20 14:21] VITALS: BMI 29.1
== END ==
PROVIDERS: Family Provider Internal Medicine; PCP Internal Medicine; Referring Provider Urology; Visit Provider Urology
DX: N39.0 Urinary tract infection, site not specified (principal); R33.8 Other retention of urine
CPT/HCPCS: 51702; 87086

== ENCOUNTER → 2021-05-20 12:41 | Outpatient (CLI) | payer MEDICARE, OTHER, SELFPAY ==
[2021-02-20 14:21] VITALS: BMI 29.1
== END ==
PROVIDERS: Family Provider Internal Medicine; PCP Internal Medicine; Referring Provider Urology; Visit Provider Urology
DX: R30.0 Dysuria (principal)
CPT/HCPCS: 51702; 87086

== ENCOUNTER → 2021-07-23 11:08 | Outpatient (CLI) | payer MEDICARE, OTHER, SELFPAY ==
[2021-02-20 14:21] VITALS: BMI 29.1
== END ==
PROVIDERS: Family Provider Internal Medicine; PCP Internal Medicine; Visit Provider Urology
DX: N39.0 Urinary tract infection, site not specified (principal); N39.43 Post-void dribbling; N39.490 Overflow incontinence; R33.8 Other retention of urine
CPT/HCPCS: 51702; 87077; 87086

== ENCOUNTER → 2021-08-13 10:27 | Outpatient (CLI) | payer MEDICARE, OTHER, SELFPAY ==
[2021-02-20 14:21] VITALS: BMI 29.1
--- NOTE | 2021-08-13 10:30 | DI.CT.S_ITS ---
PROCEDURE: CT CHEST WO CON INDICATIONS: Pleural effusion, not elsewhere classified TECHNIQUE: Noncontrast 5 mm thick sections acquired from the pulmonary apices to the posterior costophrenic angles. 1 mm lung window, 5 mm thick coronal and sagittal and 7 mm axial MIP reformats were then acquired. For radiation dose reduction, the following was used: automated exposure control, adjustment of mA and/or kV according to patient size. COMPARISON: [facility], CT, CT CHEST W CON, 02/20/2021, 11:35. [facility], CR, XR CHEST 2V, 04/05/2021, 11:50. FINDINGS: Image quality: Excellent. Lungs and pleura: Moderate size right pleural effusion which appears to have a thickened in capsulated border consistent with a chronic pleural effusion, unchanged compared to the prior CT on 02/20/2021. Previously seen left pleural effusion has resolved. Left lower lobe nodule 4 mm series 5, image 294. No acute air space opacities. Central and peripheral airways are patent and normal in caliber. Mediastinum: Heart size is normal. No pericardial effusion. A right anterior paratracheal lymph node measures 2.1 cm, unchanged. 2.5 x 1.7 cm mass adjacent to the pleura between the left upper lobe and the mediastinum is unchanged compared to the prior CT when it measured 2.5 x 1.5 cm. Thoracic aorta and central pulmonary arteries are normal in size. Esophagus is normal in caliber. No hiatal hernia. The coronary arteries have atherosclerotic calcifications. Bones and chest wall: No suspicious bony lesions. No vertebral body compression fractures. No axillary or supraclavicular adenopathy by size criteria. Thyroid gland is normal . Abdomen: Visualized upper abdominal solid organs and bowel loops appear normal in the absence of contrast. IMPRESSION: 1. 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 2. Right pleural effusion is unchanged and adjacent atelectasis. 3. Left pleural effusion has resolved. 4. Mediastinal lymph nodes are unchanged. 5. New 4 mm left lower lobe nodule. Dictated by: Tavo Ozuna M.D. on 08/13/2021 at 16:30 Approved by: Tavo Ozuna M.D. on 08/13/2021 at 16:45
== END ==
PROVIDERS: Family Provider Internal Medicine; PCP Internal Medicine; Referring Provider Internal Medicine Critical Care Medicine; Visit Provider Internal Medicine Critical Care Medicine
DX: J90 Pleural effusion, not elsewhere classified (principal); J98.59 Other diseases of mediastinum, not elsewhere classified; R59.0 Localized enlarged lymph nodes; R91.1 Solitary pulmonary nodule; R33.8 Other retention of urine; I50.9 Heart failure, unspecified; R06.02 Shortness of breath
CPT/HCPCS: 71250; 76872

== ENCOUNTER → 2021-08-25 11:56 | Outpatient (CLI) | payer MEDICARE, OTHER, SELFPAY ==
[2021-02-20 14:21] VITALS: BMI 29.1
== END ==
PROVIDERS: Family Provider Internal Medicine; PCP Internal Medicine; Visit Provider Urology
DX: R30.0 Dysuria (principal); N39.43 Post-void dribbling; N39.490 Overflow incontinence; R33.8 Other retention of urine
CPT/HCPCS: 51702; 87077; 87086; 87187

== ENCOUNTER → 2021-09-25 10:18 | Outpatient (CLI) | payer MEDICARE, OTHER, SELFPAY ==
[2021-02-20 14:21] VITALS: BMI 29.1
== END ==
PROVIDERS: Family Provider Internal Medicine; PCP Internal Medicine; Visit Provider Urology
DX: R30.0 Dysuria (principal); R33.8 Other retention of urine
CPT/HCPCS: 51702; 87077; 87086

== ENCOUNTER → 2021-10-23 14:22 | Outpatient (CLI) | payer MEDICARE, OTHER, SELFPAY ==
[2021-02-20 14:21] VITALS: BMI 29.1
== END ==
PROVIDERS: Family Provider Internal Medicine; PCP Internal Medicine; Visit Provider Specialist
DX: R30.0 Dysuria (principal); R33.8 Other retention of urine
CPT/HCPCS: 51702; 87077; 87086

== ENCOUNTER → 2021-11-12 11:23 | Outpatient (CLI) | payer MEDICARE, OTHER, SELFPAY ==
[2021-02-20 14:21] VITALS: BMI 29.1
[2021-11-12 11:46] LABS: COVID19 -Nasal RAPID Negative (Negative)
== END ==
PROVIDERS: Family Provider Internal Medicine; PCP Internal Medicine; Visit Provider Urology
DX: Z20.822 Contact with and (suspected) exposure to COVID-19 (principal)
CPT/HCPCS: 87635; C9803

== ENCOUNTER 2021-11-14 11:03 | Day surgery (SDC) | payer MEDICARE, OTHER, SELFPAY ==
[2021-02-20 14:21] VITALS: BMI 29.1
[2021-11-13 11:53] VITALS: BMI 26.9
[2021-11-14] VITALS (9 sets, daily range): BP systolic 134–146; BP diastolic 61–76; PULSE 41–58; RESP 12–17; TEMP 35.6–36.7; O2SAT 97–99; BMI 26.9
[2021-11-14] MEDS: LACTATED RINGERS 1,000 ML 25 ML IV (11:51)
--- NOTE | 2021-11-14 11:54 | PM.PREOP ---
Pre-operative Note COVID-19 COVID-19 status: Negative Result date/Date tested (Pos, Neg/Pending): 11/12/21 Criteria for continued procedure: Expected advancement of disease process, Deterioration of the patient's condition or overall health and Non-surgical alternatives not available or appropriate per current SOC Interval Note History & Physical reviewed/Exam performed by Physician: Yes Changes to H&P: No
[2021-11-14 11:59] LABS: INR 1.4 (0.9-1.3); Prothrombin Time 15.6 SECONDS (10.1-12.7)
--- NOTE | 2021-11-14 12:15 | SUR.OPER ---
Lithotomy on padded OR bed, head on pillow, arms secured on padded arm boards at <90 degrees abduction. Legs secured in padded yellow fins stirrups.
[2021-11-14] MEDS: CEFAZOLIN 2 GM/20 ML SYRINGE IV (12:35)
--- NOTE | 2021-11-14 12:41 | SUR.PREOP ---
1225 Dr. Ace informed that urine was tiff, foul smelling.
[2021-11-14] MEDS: MINERAL OIL LIGHT TOPICAL 10 ML TOP (12:55)
--- NOTE | 2021-11-14 13:25 | PM.OP.1 ---
Procedure & Clinicians Procedure: Cystoscopy with direct patient placement of suprapubic tube Same procedure as scheduled: Yes Indications: This is an 81-year-old male who has urinary retention is not resolving he presents this time for direct vision placement of suprapubic tube having had cardiac clearance and having stopped his warfarin and having been given preoperative antibiotics. Surgeon: Mike Ace Click Yes if Unassisted: Yes Anesthesia Type: General Operative Notes Findings: Urethra normal save changes of indwelling Barroso catheter. Prostatic fossa shows marked obstructive character elongation and a median lobe ureteral orifices were not directly observed there were severe trabeculations cellules and a rather neurogenic appearance to the bladder. The 18 [place] silicone catheter was placed a fingerbreadth above them pubic symphysis. There were no other abnormalities in the bladder. Closure Type: primary Specimen(s): none sent Applied: catheter (Eighteen [place] all silicone catheter 11 cc in the balloon used as the SP tube) Estimated Blood Loss (mL): 5 Blood products transfused: none Procedure in detail: After informed consent was obtained, patient was identified and brought to the operating room. He was then placed in a supine position on the table where anesthesia was induced to maintain. After ensuring an adequate coil of anesthesia the patient was transitioned to the lithotomy position. Once in lithotomy position with an adequate level of anesthesia he was shaved, prepped, draped and prepared for the above procedure. After prepping draping and ensuring an adequate level of anesthesia a 21 [place] cystoscope was passed through the urethra and into the bladder under direct vision. Cystoscopy was performed. And the anterior portion of the bladder identified. Then with palpation 1 finger breath in the midline above the top of the pubic symphysis a seeker needle is passed into the bladder and observed. The syringe was exchanged for 1 filled with local and the bladder subcutaneous tissues and skin were infiltrated with 0.25% Marcaine. A stab incision was made and there was a bleeder which was cauterized to control. In the bladder there was also some bleeding so Bugbee electrode was in put in place and the bleeding cauterized. Of with this done the sheath and trocar were passed through the abdominal wall and into the bladder under direct vision. The trocar was removed and the catheter passed through the sheath and into the bladder the balloon was filled 11 cc of sterile water. The sheath was removed and the catheter was left in good place. The skin edges were then reapproximated with horizontal mattress of 2-0 nylon. The catheter was sure occurred in place with a 2-0 nylon. The bladder was observe for any further bleeding there was 1 area which was cauterized with the Bugbee electrode. Hemostasis appeared good the bladder was drained and the position of the catheter observed it was good the bladder was refilled and drained and again the catheter remained in good position. At this point the cystoscope was removed. Dressings were applied and the patient was awakened and transition to the postanesthesia care unit having tolerated procedure well there were no complications. Complications: none Post-operative Condition: stable Disposition: PACU Plan for aftercare: Patient to be discharged home he will follow up my office in 10 days for stitch removal and then 30 days for his 1st SP tube change.
== END 2021-11-14 15:25 | disposition home or self-care (01) ==
PROVIDERS: Family Provider Internal Medicine; PCP Internal Medicine; Referring Provider Urology; Visit Provider Urology
PROC: 0T9B30Z Drainage of Bladder with Drainage Device, Percutaneous Approach (ICD-10-PCS; CPT 51102; principal; 2021-11-14 12:30)
DX: R33.8 Other retention of urine (principal); N13.9 Obstructive and reflux uropathy, unspecified; I10 Essential (primary) hypertension; I48.91 Unspecified atrial fibrillation; Z79.01 Long term (current) use of anticoagulants
CPT/HCPCS: 51102; 36415; 82962; 85610; J0690; J2250; J2405; J2704; J3010

== ENCOUNTER 2021-11-15 10:35 | Emergency (ER) | payer MEDICARE, OTHER, SELFPAY ==
[2021-02-20 14:21] VITALS: BMI 29.1
[2021-11-15 10:39] VITALS: BP 149/68; PULSE 61; RESP 14; TEMP 36.3; O2SAT 99
--- NOTE | 2021-11-15 11:03 | ED.RECABL ---
HPI - Recheck/Abnormal Lab/Rx General Chief Complaint: Recheck/Abnormal Lab/Rx Stated Complaint: Bandage post procedure is wet- needs assessing Time Seen by Provider: 11/15/21 10:54 Source: patient Mode of arrival: Ambulatory History of Present Illness HPI narrative: Patient is an 81-year-old male who presents operative suprapubic catheter. He is in no up this morning with the dressing is wet. Suprapubic catheter was placed yesterday for urinary retention. There is urine in the catheter it seems to be working has no abdominal pain or fever. However the stack of 4x4s placed around the catheter or soaking wet with some diluted blood. Related Data Home Medications Medication Instructions Recorded Confirmed tamsulosin 0.4 mg capsule 0.4 mg PO DAILY 02/20/21 11/14/21 spironolactone 50 mg tablet 50 mg PO DAILY 04/15/21 11/14/21 Previous Rx's Medication Instructions Recorded furosemide 40 mg tablet 40 mg PO DAILY #30 tab 02/24/21 metoprolol succinate 25 mg 25 mg PO DAILY #30 tab 02/24/21 tablet,extended release 24 hr Allergies Allergy/AdvReac Type Severity Reaction Status Date / Time hydrocodone [HYDROCODONE] AdvReac Mild NAUSEA, Verified 11/15/21 10:41 VOMITING hydromorphone [HYDROMORPHONE] AdvReac Mild NAUSEA, Verified 11/15/21 10:41 VOMITING Review of Systems Review of Systems Narrative: GENERAL: Denies chills,fever HEENT: Denies throat pain RESPIRATORY: Denies dyspnea, cough, wheezing CARDIOVASCULAR: Denies chest pain, palpitations GASTROINTESTINAL: Denies nausea, vomiting : see HPI MUSCULOSKELETAL: Denies extremity pain, injury SKIN: No rash, no laceration, no pruritus NEUROLOGIC: Denies weakness, dizziness, headache, numbness 8 point review of systems is negative except for those stated above and HPI Patient History Medical History Atrial fibrillation Elevated PSA (05/16/12) Hypertension (05/16/12) Lower extremity edema Obstructive uropathy Urinary retention Surgical History H/O inguinal hernia repair History of oral surgery (~11/11/21) Family History Mother Cancer Father Hypertension Social History household members: none Smoking Status: Former smoker alcohol intake: former Smoking Status: Former smoker alcohol intake frequency: 0-2 drinks per day Substance Use Type: does not use Exam Initial Vital Signs Initial Vital Signs: Vital Signs Temperature 97.4 F L 11/15/21 10:39 Pulse Rate 61 11/15/21 10:39 Respiratory Rate 14 11/15/21 10:39 Blood Pressure 149/68 H 11/15/21 10:39 Pulse Oximetry 99 11/15/21 10:39 GENERAL: Alert pleasant 81-year-old male CARDIOVASCULAR: peripheral pulses in tact, cap refill <2 sec RESPIRATORY: No respiratory distress, speaks in full sentences without difficulty ABDOMEN: Soft, nontender, no guarding or rebound : Suprapubic catheter placed a minimal blood loss but there is some leakage of urine around catheterization EXTREMITIES: Normal range of motion, no clubbing or edema. Neurovascularly intact NEUROLOGICAL: Cranial nerves II through XII grossly intact. Normal gait and speech. SKIN: Warm, dry, no petechiae, no rashes or lesions. Course Vital Signs Vital signs: Vital Signs - 8 hr 11/15/21 10:39 Temperature 97.4 F L Pulse Rate 61 Respiratory Rate 14 Blood Pressure 149/68 H Pulse Oximetry 99 MDM - Recheck/Abnormal Lab/Rx MDM Narrative Medical decision making narrative: Patient overall appears well abdomen is soft no fever no vomiting, but does have urine leakage around the suprapubic catheter. 11:45 Dr. Ace, Urology updated patient's symptoms test results once is expected postoperative bleed. Recommend changing the dressing it will heal and close Discharge Plan Departure Patient Disposition: Home Clinical Impression: Suprapubic catheter dysfunction Instructions: Suprapubic Cystostomy Activity Restrictions/Additional Instructions: *You have been diagnosed with suprapubic catheter *What to do: Expect the dressing to it wet. When it is wet and place a new dressing. As her body feels it will no longer leak *Continue to take medications as directed *Follow up with your primary care provider in 2-3 days or call [phone] Follow-up with Dr. Ace as scheduled *Return to ER if you should have fever abdominal pain nausea or vomiting or Barroso catheter not working not working any new, worsening or concerning symptoms Prescriptions: No Action spironolactone 50 mg tablet 50 mg PO DAILY 0RF tamsulosin 0.4 mg capsule 0.4 mg PO DAILY 0RF Label Comments: TAKE ONE CAPSULE BY MOUTH TWICE DAILY furosemide 40 mg Tablet 40 mg PO DAILY Qty: 30 0RF metoprolol succinate 25 mg tablet extended release 24 hr 25 mg PO DAILY Qty: 30 0RF Referrals: Von Rg MD [Primary Care Provider] - Mike Ace MD [Physician] -
== END 2021-11-15 12:03 | disposition home or self-care (01) ==
PROVIDERS: Emergency Provider Emergency Medicine; Family Provider Internal Medicine; PCP Internal Medicine
DX: T83.030A Leakage of cystostomy catheter, initial encounter (principal)
CPT/HCPCS: 99281

== ENCOUNTER → 2021-12-15 14:37 | Outpatient (CLI) | payer MEDICARE, OTHER, SELFPAY ==
[2021-02-20 14:21] VITALS: BMI 29.1
== END ==
PROVIDERS: Family Provider Internal Medicine; PCP Internal Medicine; Visit Provider Urology
DX: R30.0 Dysuria (principal)
CPT/HCPCS: 87077; 87086; 87186

== ENCOUNTER → 2022-03-10 10:21 | Outpatient (CLI) | payer MEDICARE, OTHER, SELFPAY ==
[2021-02-20 14:21] VITALS: BMI 29.1
== END ==
PROVIDERS: Family Provider Internal Medicine; PCP Internal Medicine; Visit Provider Urology
DX: N39.490 Overflow incontinence (principal); N39.43 Post-void dribbling; R30.0 Dysuria; R33.8 Other retention of urine
CPT/HCPCS: 51702; 87077; 87086; 87186

== ENCOUNTER → 2022-04-10 10:08 | Outpatient (CLI) | payer MEDICARE, OTHER, SELFPAY ==
[2021-02-20 14:21] VITALS: BMI 29.1
== END ==
PROVIDERS: Family Provider Internal Medicine; PCP Internal Medicine; Visit Provider Urology
DX: R30.0 Dysuria (principal); R33.9 Retention of urine, unspecified
CPT/HCPCS: 51705; 87077; 87086; 87186

== ENCOUNTER → 2022-05-08 11:11 | Outpatient (CLI) | payer MEDICARE, OTHER, SELFPAY ==
[2021-02-20 14:21] VITALS: BMI 29.1
== END ==
PROVIDERS: Family Provider Internal Medicine; PCP Internal Medicine; Visit Provider Urology
DX: N13.30 Unspecified hydronephrosis (principal); N39.43 Post-void dribbling; N39.490 Overflow incontinence; R33.9 Retention of urine, unspecified; R39.13 Splitting of urinary stream; L92.9 Granulomatous disorder of the skin and subcutaneous tissue, unspecified
CPT/HCPCS: 17250; 51702; 87077; 87086; 87186

== ENCOUNTER → 2022-06-09 10:28 | Outpatient (CLI) | payer MEDICARE, OTHER, SELFPAY ==
[2021-02-20 14:21] VITALS: BMI 29.1
== END ==
PROVIDERS: Family Provider Internal Medicine; PCP Internal Medicine; Visit Provider Urology
DX: R33.9 Retention of urine, unspecified (principal)
CPT/HCPCS: 87077; 87086; 87186

== ENCOUNTER → 2022-07-09 10:02 | Outpatient (CLI) | payer MEDICARE, OTHER, SELFPAY ==
[2021-02-20 14:21] VITALS: BMI 29.1
== END ==
PROVIDERS: Family Provider Internal Medicine; PCP Internal Medicine; Visit Provider Urology
DX: R33.9 Retention of urine, unspecified (principal)
CPT/HCPCS: 51702; 87077; 87086; 87186

== ENCOUNTER → 2022-08-11 10:52 | Outpatient (CLI) | payer MEDICARE, OTHER, SELFPAY ==
[2021-02-20 14:21] VITALS: BMI 29.1
== END ==
PROVIDERS: Family Provider Internal Medicine; PCP Internal Medicine; Visit Provider Urology
DX: R33.8 Other retention of urine (principal); Z97.8 Presence of other specified devices
CPT/HCPCS: 51702; 87077; 87086; 87186

== ENCOUNTER → 2022-09-11 10:30 | Outpatient (CLI) | payer MEDICARE, OTHER, SELFPAY ==
[2022-08-11 11:17] VITALS: BMI 29.1
== END ==
PROVIDERS: Family Provider Internal Medicine; PCP Internal Medicine; Visit Provider Urology
DX: R33.9 Retention of urine, unspecified (principal); L92.9 Granulomatous disorder of the skin and subcutaneous tissue, unspecified
CPT/HCPCS: 17250; 51702; 87077; 87086; 87186

== ENCOUNTER → 2022-10-08 10:32 | Outpatient (CLI) | payer MEDICARE, OTHER, SELFPAY ==
[2022-08-11 11:17] VITALS: BMI 29.1
== END ==
PROVIDERS: Family Provider Internal Medicine; Visit Provider Urology
DX: N13.30 Unspecified hydronephrosis (principal); R33.9 Retention of urine, unspecified; Z93.59 Other cystostomy status
CPT/HCPCS: 51702; 87077; 87086; 87186; 99213

== ENCOUNTER → 2022-11-19 10:27 | Outpatient (CLI) | payer MEDICARE, OTHER, SELFPAY ==
[2022-10-08 10:33] VITALS: BMI 29.1
== END ==
PROVIDERS: Family Provider Internal Medicine; Visit Provider Urology
DX: R33.9 Retention of urine, unspecified (principal); Z93.59 Other cystostomy status
CPT/HCPCS: 51702; 87077; 87086; 87186

== ENCOUNTER → 2022-12-17 10:14 | Outpatient (CLI) | payer MEDICARE, OTHER, SELFPAY ==
[2022-10-08 10:33] VITALS: BMI 29.1
== END ==
PROVIDERS: Family Provider Internal Medicine; PCP Physician Assistant; Visit Provider Specialist
DX: R33.8 Other retention of urine (principal); R33.9 Retention of urine, unspecified; Z93.59 Other cystostomy status
CPT/HCPCS: 87077; 87086; 87186

== ENCOUNTER → 2022-12-17 11:03 | Outpatient (CLI) | payer MEDICARE, OTHER, SELFPAY ==
[2022-10-08 10:33] VITALS: BMI 29.1
--- NOTE | 2022-12-17 | DI.CT.S_ITS ---
PROCEDURE: CT CHEST WO CON INDICATIONS: PLEURAL EFFUSION TECHNIQUE: Noncontrast 5 mm thick sections acquired from the pulmonary apices to the posterior costophrenic angles. 1 mm lung window, 5 mm thick coronal and sagittal and 7 mm axial MIP reformats were then acquired. For radiation dose reduction, the following was used: automated exposure control, adjustment of mA and/or kV according to patient size. COMPARISON: [facility], CT, CT CHEST WITHOUT CONTRAST, 05/18/2022, 12:32. [facility], CT, CT CHEST WO CON, 08/13/2021, 10:46. FINDINGS: Image quality: Excellent. Lungs and pleura: Redemonstration of 2.2 x 1.5 cm noncalcified pulmonary nodule abutting the anteromedial pleura of the left upper lobe (114/series 3). This previously measured 2.3 x 1.4 cm. Stable 5 mm right lower lobe pulmonary nodule (180/series 3). Stable 5 mm subpleural left lower lobe pulmonary nodule (282/series 3). No new or suspicious pulmonary nodules. No acute air space opacities. No pneumothorax. Minimal left basilar atelectasis moderate right pleural effusion as before with associated compressive atelectasis and/or concurrent rounded atelectasis at the right lung base. There is mild heterogeneity of pleural effusion possibly representing internal loculations. No left pleural effusion. No pneumothorax. Central and peripheral airways are patent and normal in caliber. Mediastinum: Heart size is normal. Coronary atherosclerotic vascular calcifications are noted. No pericardial effusion. No mediastinal adenopathy by size criteria. Thoracic aorta and central pulmonary arteries are normal in size. Esophagus is normal in caliber. No hiatal hernia. Bones and chest wall: No suspicious bony lesions. No acute vertebral body compression fractures. No axillary or supraclavicular adenopathy by size criteria. Thyroid gland is unremarkable. Abdomen: Visualized upper abdominal solid organs and bowel loops appear normal in the absence of contrast. IMPRESSION: 1. Multiple bilateral pulmonary nodules appear stable. Largest is again noted abutting the pleura of the anterior, medial left upper lobe measuring approximately 2.2 x 1.5 cm. 2. Stable appearance of chronic moderate-sized right pleural effusion with associated compressive atelectasis and/or rounded atelectasis. No acute airspace disease identified. Dictated by: Delio Sotelo M.D. on 12/17/2022 at 15:30 Approved by: Delio Sotelo M.D. on 12/17/2022 at 15:43
== END ==
PROVIDERS: Family Provider Internal Medicine; PCP Physician Assistant; Referring Provider Internal Medicine Critical Care Medicine; Visit Provider Internal Medicine Critical Care Medicine
DX: J90 Pleural effusion, not elsewhere classified (principal); R91.8 Other nonspecific abnormal finding of lung field; R33.8 Other retention of urine; Z93.59 Other cystostomy status
CPT/HCPCS: 51702; 71250; 87077; 87086; 87186

== ENCOUNTER → 2023-01-14 11:31 | Outpatient (CLI) | payer MEDICARE, OTHER, SELFPAY ==
[2022-10-08 10:33] VITALS: BMI 29.1
== END ==
PROVIDERS: Family Provider Internal Medicine; PCP Physician Assistant; Visit Provider Urology
DX: N39.490 Overflow incontinence (principal); R33.8 Other retention of urine; Z93.59 Other cystostomy status
CPT/HCPCS: 51702; 87077; 87086; 87186

== ENCOUNTER → 2023-02-12 11:46 | Outpatient (CLI) | payer MEDICARE, OTHER, SELFPAY ==
[2022-10-08 10:33] VITALS: BMI 29.1
--- NOTE | 2023-02-12 | DI.ECHO.S_ITS ---
[facility]---------+ [facility] +---------+ : : [address] : [place] : : : : [id number] : : : : Phone: [phone]+ Echocardiogram Report + + :Name: WINTER CARRILLO Study Date: 02/12/2023 Height: 72 in : :[facility] ReadingLocation: Weight: 200 lb : : Gender: Male BSA: 2.1 m2 : :: 1940 Age: 82 yrs BP: 138/81 mmHg: :Reason For Study: Chronic Heart Failure : :Ordering Physician: TIM, : :SHERRELL Performed By: Mae Richardson : :Referring: SHERRELL SAINZ : + + Interpretation Summary 1) Mildly increased left ventricular thickness (concentric) with normal size, normal wall motion, and normal sysotlic function (EF 65-705). 2) The right ventricle is mildly dilated. The right ventricular systolic function is normal. 3) No significant valvular abnormalities. 4) The right ventricular systolic pressure is estimated to be at least 27 mmHg based on an estimated right atrial pressure of 3 mm Hg. 5) Compared to the Echo done 02/21/2021, right sided hypervolemia has resolved on this study. Procedure: A two-dimensional transthoracic echocardiogram with color flow and Doppler was performed. The study quality was technically difficult. Comparison is made with the echocardiogram of 02/21/2021. A contrast injection of Definity was performed to improve assessment of LV function. The patient was in atrial fibrillation with heart rates between 65 bpm during the exam. Left Ventricle: The left ventricle is normal in size. There is mild concentric left ventricular hypertrophy. The ejection fraction is estimated to be 65-70%. Left ventricular systolic function appears normal without focal wall motion abnormalities. Diastolic function could not be accurately assessed due to atrial fibrillation. Right Ventricle: The right ventricle is mildly dilated. The right ventricular systolic function is normal. Atria: The left atrium is mildly dilated. The right atrium is severely dilated. There is no Doppler evidence for an interatrial shunt. Mitral Valve: The mitral valve leaflets are mildly calcified. There is mild to moderate mitral annular calcification. Mean gradient 2.0mmHg. There is trace mitral regurgitation. Aortic Valve: The aortic valve is trileaflet. There is moderate aortic valve sclerosis. There is no aortic valve stenosis. There is trace aortic regurgitation. Tricuspid Valve: The tricuspid valve is normal. There is no tricuspid stenosis. There is mild tricuspid regurgitation. The right ventricular systolic pressure is estimated to be at least 27 mmHg based on an estimated right atrial pressure of 3 mm Hg. Pulmonic Valve: The pulmonic valve leaflets are thin and pliable; valve motion is normal. There is no pulmonic valvular stenosis. There is no pulmonic valvular regurgitation. Great Vessels: The aortic root is normal size. The ascending aorta is at the upper limits of normal in size. The IVC is of normal diameter and collapses greater than 50% with a sniff. This suggests a low right atrial pressure of 3 mm Hg. Pericardium/ Pleura There is no pericardial effusion. MMode/2D Measurements & Calculations LVIDd: 4.3 cm LVOT diam: 1.9 cm LVIDs: 2.9 cm Ao root diam: 3.4 cm FS: 32.6 % asc Aorta Diam: 3.7 cm EPSS: 1.3 cm IVSd: 1.3 cm LVPWd: 1.3 cm LV moreira. diameter/BSA (cm/m^2): 2.0 LV sys. diameter/BSA (cm/m^2): 1.4 LA A2 area: 25.8 cm2 RA long axis: 7.2 cm LA A4 area: 22.5 cm2 RA area: 32.5 cm2 LA length (vol): 7.0 cm RA vol: 125.6 ml LA vol: 70.8 ml RA : 59.0 ml/m2 LA vol index: 33.2 ml/m2 RVD1 (basal): 5.1 cm LVAd ap4: 33.4 cm2 LVAs ap4: 14.8 cm2 LVLs ap4: 5.8 cm LVAd ap2: 32.3 cm2 TAPSE_phl: 1.9 cm LVLd ap2: 7.2 cm LVAs ap2: 13.3 cm2 LVLs ap2: 5.6 cm Doppler Measurements & Calculations Ao V2 max: 138.5 cm/sec LVOT Max Ant: 99.6 cm/sec Ao max P.7 mmHg LV V1 max P.0 mmHg VARSHA(V,D): 2.0 cm2 TR max ant: 246.0 cm/sec MV V2 mean: 66.6 cm/sec TR max P.2 mmHg MV mean P.1 mmHg MV V2 VTI: 26.5 cm Reading Physician:12:27 PM
== END ==
PROVIDERS: Family Provider Internal Medicine; PCP Physician Assistant; Referring Provider Internal Medicine Cardiovascular Disease; Visit Provider Internal Medicine Cardiovascular Disease
DX: I08.3 Combined rheumatic disorders of mitral, aortic and tricuspid valves (principal); I50.32 Chronic diastolic (congestive) heart failure; J90 Pleural effusion, not elsewhere classified; I27.20 Pulmonary hypertension, unspecified
CPT/HCPCS: 93306; Q9957

== ENCOUNTER → 2023-02-16 11:02 | Outpatient (CLI) | payer MEDICARE, OTHER, SELFPAY ==
[2022-10-08 10:33] VITALS: BMI 29.1
== END ==
PROVIDERS: Family Provider Internal Medicine; PCP Physician Assistant; Visit Provider Urology
DX: L92.9 Granulomatous disorder of the skin and subcutaneous tissue, unspecified (principal); R33.9 Retention of urine, unspecified; N13.30 Unspecified hydronephrosis; R33.8 Other retention of urine; Z93.59 Other cystostomy status
CPT/HCPCS: 17250; 51702; 87077; 87086; 87186

== ENCOUNTER → 2023-04-06 08:40 | Outpatient (CLI) | payer MEDICARE, OTHER, SELFPAY ==
[2022-10-08 10:33] VITALS: BMI 29.1
== END ==
PROVIDERS: Family Provider Internal Medicine; PCP Physician Assistant; Referring Provider Physician Assistant; Visit Provider Surgery
DX: N13.30 Unspecified hydronephrosis (principal); N39.490 Overflow incontinence; N39.43 Post-void dribbling; R33.9 Retention of urine, unspecified; R39.13 Splitting of urinary stream; Z93.59 Other cystostomy status; R33.8 Other retention of urine; L92.9 Granulomatous disorder of the skin and subcutaneous tissue, unspecified; S80.12XS Contusion of left lower leg, sequela; S81.802A Unspecified open wound, left lower leg, initial encounter; R60.0 Localized edema
CPT/HCPCS: 11042; 17250; 51702; 87086; 99203; 99213

== ENCOUNTER → 2023-04-06 10:41 | Outpatient (CLI) | payer MEDICARE, OTHER, SELFPAY ==
[2022-10-08 10:33] VITALS: BMI 29.1
== END ==
PROVIDERS: Family Provider Internal Medicine; PCP Physician Assistant; Visit Provider Urology
DX: N13.30 Unspecified hydronephrosis (principal); N39.490 Overflow incontinence; N39.43 Post-void dribbling; R33.8 Other retention of urine; R33.9 Retention of urine, unspecified; R39.13 Splitting of urinary stream; Z93.59 Other cystostomy status
CPT/HCPCS: 87086

== ENCOUNTER → 2023-04-08 14:02 | Outpatient (CLI) | payer MEDICARE, OTHER, SELFPAY ==
[2022-10-08 10:33] VITALS: BMI 29.1
== END ==
PROVIDERS: Family Provider Internal Medicine; PCP Physician Assistant; Referring Provider Physician Assistant; Visit Provider Surgery
DX: S81.802A Unspecified open wound, left lower leg, initial encounter (principal)
CPT/HCPCS: 99212

== ENCOUNTER → 2023-04-13 11:29 | Outpatient (CLI) | payer MEDICARE, OTHER, SELFPAY ==
[2022-10-08 10:33] VITALS: BMI 29.1
== END ==
PROVIDERS: Family Provider Internal Medicine; PCP Physician Assistant; Referring Provider Physician Assistant; Visit Provider Surgery
DX: S81.802A Unspecified open wound, left lower leg, initial encounter (principal); R60.0 Localized edema; I50.32 Chronic diastolic (congestive) heart failure; I27.0 Primary pulmonary hypertension
CPT/HCPCS: 11042

== ENCOUNTER → 2023-04-16 10:26 | Outpatient (CLI) | payer MEDICARE, OTHER, SELFPAY ==
[2022-10-08 10:33] VITALS: BMI 29.1
== END ==
PROVIDERS: Family Provider Internal Medicine; PCP Physician Assistant; Referring Provider Physician Assistant; Visit Provider Surgery
DX: S81.802A Unspecified open wound, left lower leg, initial encounter (principal); L98.8 Other specified disorders of the skin and subcutaneous tissue
CPT/HCPCS: 99212

== ENCOUNTER → 2023-04-19 09:54 | Outpatient (CLI) | payer MEDICARE, OTHER, SELFPAY ==
[2022-10-08 10:33] VITALS: BMI 29.1
== END ==
PROVIDERS: Family Provider Internal Medicine; PCP Physician Assistant; Referring Provider Physician Assistant; Visit Provider Surgery
DX: S81.802A Unspecified open wound, left lower leg, initial encounter (principal); R60.0 Localized edema; Z79.01 Long term (current) use of anticoagulants
CPT/HCPCS: 11042

== ENCOUNTER → 2023-04-23 10:58 | Outpatient (CLI) | payer MEDICARE, OTHER, SELFPAY ==
[2022-10-08 10:33] VITALS: BMI 29.1
== END ==
PROVIDERS: Family Provider Internal Medicine; PCP Physician Assistant; Referring Provider Physician Assistant; Visit Provider Physician Assistant
DX: S81.802A Unspecified open wound, left lower leg, initial encounter (principal)
CPT/HCPCS: 99213

== ENCOUNTER → 2023-04-26 13:47 | Outpatient (CLI) | payer MEDICARE, OTHER, SELFPAY ==
[2022-10-08 10:33] VITALS: BMI 29.1
== END ==
PROVIDERS: Family Provider Internal Medicine; PCP Physician Assistant; Referring Provider Physician Assistant; Visit Provider Surgery
DX: S81.802A Unspecified open wound, left lower leg, initial encounter (principal); R60.0 Localized edema; I27.20 Pulmonary hypertension, unspecified; I50.9 Heart failure, unspecified; I48.91 Unspecified atrial fibrillation
CPT/HCPCS: 99213

== ENCOUNTER → 2023-05-04 10:34 | Outpatient (CLI) | payer MEDICARE, OTHER, SELFPAY ==
[2022-10-08 10:33] VITALS: BMI 29.1
== END ==
PROVIDERS: Family Provider Internal Medicine; PCP Physician Assistant; Visit Provider Urology
DX: N13.30 Unspecified hydronephrosis (principal); N39.43 Post-void dribbling; N39.490 Overflow incontinence; R33.8 Other retention of urine; R39.13 Splitting of urinary stream; Z93.59 Other cystostomy status
CPT/HCPCS: 51702; 87077; 87086; 87185; 87186

== ENCOUNTER → 2023-05-11 10:48 | Outpatient (CLI) | payer MEDICARE, OTHER, SELFPAY ==
[2022-10-08 10:33] VITALS: BMI 29.1
== END ==
PROVIDERS: Family Provider Internal Medicine; PCP Physician Assistant; Referring Provider Physician Assistant; Visit Provider Surgery
DX: S81.802D Unspecified open wound, left lower leg, subsequent encounter (principal); I50.32 Chronic diastolic (congestive) heart failure; R60.0 Localized edema
CPT/HCPCS: 99212; 99213

== ENCOUNTER → 2023-06-01 16:26 | Outpatient (CLI) | payer MEDICARE, OTHER, SELFPAY ==
[2022-10-08 10:33] VITALS: BMI 29.1
== END ==
PROVIDERS: Family Provider Internal Medicine; PCP Physician Assistant; Visit Provider Urology
DX: R33.8 Other retention of urine (principal); N13.30 Unspecified hydronephrosis; N39.43 Post-void dribbling; R39.13 Splitting of urinary stream; N39.490 Overflow incontinence; Z93.59 Other cystostomy status
CPT/HCPCS: 51702; 87077; 87086; 87186

== ENCOUNTER → 2023-06-22 09:49 | Outpatient (CLI) | payer MEDICARE, OTHER, SELFPAY ==
[2022-10-08 10:33] VITALS: BMI 29.1
--- NOTE | 2023-06-22 09:53 | DI.US.S_ITS ---
PROCEDURE: US RENAL COMPLETE INDICATIONS: INDWELLING PLATA CATHETER; POSSIBLE HYDRONEPHROSIS TECHNIQUE: Real-time scanning was performed of the kidneys and bladder, with image documentation. COMPARISON: [facility], , RENAL COMPLETE, 12/12/2020, 13:14. FINDINGS: Kidneys: Kidneys are normal in size. Right kidney measures 10.2 cm long; left kidney measures 10.8 cm long. Right renal cortical thickness is 1.4 cm; left renal cortical thickness is 1.5 cm. Renal cortical echotexture is normal. No hydronephrosis or nephrolithiasis. No suspicious solid mass lesions. Bladder: A transabdominal bladder catheter is seen, which decompresses the bladder. Neither ureteral jet can be seen. Miscellaneous: No free pelvic fluid. IMPRESSION: Normal appearing kidneys, without hydronephrosis. There is a transabdominal bladder catheter seen, which decompresses the bladder. Dictated by: Reece Oliver M.D. on 06/22/2023 at 12:03 Approved by: Reece Oliver M.D. on 06/22/2023 at 12:04
== END ==
PROVIDERS: Family Provider Internal Medicine; PCP Physician Assistant; Referring Provider Urology; Visit Provider Urology
DX: N13.30 Unspecified hydronephrosis (principal); R33.8 Other retention of urine
CPT/HCPCS: 76770

== ENCOUNTER → 2023-06-24 10:45 | Outpatient (CLI) | payer MEDICARE, OTHER, SELFPAY ==
[2022-10-08 10:33] VITALS: BMI 29.1
== END ==
PROVIDERS: Family Provider Internal Medicine; PCP Physician Assistant; Visit Provider Urology
DX: Z93.59 Other cystostomy status (principal); Z97.8 Presence of other specified devices; R33.9 Retention of urine, unspecified; N39.43 Post-void dribbling; R39.13 Splitting of urinary stream; N39.490 Overflow incontinence; R33.8 Other retention of urine; N13.30 Unspecified hydronephrosis
CPT/HCPCS: 51702; 87077; 87086; 87186; 99213

== ENCOUNTER → 2023-07-05 13:21 | Outpatient (CLI) | payer OTHER, SELFPAY ==
[2022-10-08 10:33] VITALS: BMI 29.1
--- NOTE | 2023-07-05 | DI.RAD.S_ITS ---
PROCEDURE: XR CHEST 2V INDICATIONS: SHORTNESS OF BREATH TECHNIQUE: 2 views of the chest were acquired. COMPARISON: [facility], CR, XR CHEST 2 VIEWS, 11/13/2021, 15:27. [facility], CT, CT CHEST WITHOUT CONTRAST, 05/18/2022, 12:32. [facility], CR, XR CHEST 2V, 04/05/2021, 11:50. FINDINGS: There is a moderate-sized right pleural effusion with associated right lower lobe atelectasis versus infiltrate. This effusion appears relatively stable from prior examinations and may be chronic in nature. Left lung is relatively clear. Heart mediastinal contours appear within normal limits. Pulmonary vascularity is normal. No acute osseous abnormality is seen. IMPRESSION: Relatively stable appearance of moderate size right pleural effusion and right lower lobe atelectasis versus infiltrate which may appears chronic in nature. No new acute findings identified. Dictated by: Wally Mcconnell M.D. on 07/05/2023 at 14:16 Approved by: Wally Mcconnell M.D. on 07/05/2023 at 14:21
== END ==
PROVIDERS: Family Provider Internal Medicine; PCP Physician Assistant; Referring Provider Chiropractor; Visit Provider Chiropractor
DX: R06.02 Shortness of breath (principal); I48.91 Unspecified atrial fibrillation; I27.20 Pulmonary hypertension, unspecified; Z87.891 Personal history of nicotine dependence; J90 Pleural effusion, not elsewhere classified; J98.11 Atelectasis
CPT/HCPCS: 71046; 93005; 94060

== ENCOUNTER → 2023-07-09 13:25 | Outpatient (CLI) | payer OTHER, SELFPAY ==
[2022-10-08 10:33] VITALS: BMI 29.1
--- NOTE | 2023-07-09 14:13 | DI.ECHO.S_ITS ---
[facility] + + [facility] +---------+ : : [address] : : : : [address] : : : : [place], : : : : [place] [address] : : : : Phone: [phone] Echocardiogram Report + + :Name: WINTER CARRILLO Study Date: 07/09/2023 Height: 74 in : :[facility] ReadingLocation: Weight: 210 lb : : Gender: Male BSA: 2.2 m2 : :: 1940 Age: 83 yrs BP: 138/77 mmHg: :Reason For Study: Atrial fibrillation : : Performed By: Cassi Quinonez : :Referring: CONSUELO MARTINEZ : + + Interpretation Summary 1) Normal left ventricular thickness, size, wall motion, and systolic function (EF 60-65%). 2) Mildly enlarged right ventricle with low normal function. 3) There is severe biatrial enlargement. 4) There is moderate tricuspid regurgitation. 5) The right ventricular systolic pressure is estimated to be at least 35 mmHg based on an estimated right atrial pressure of 8 mm Hg. 6) Compared to the Echo done 02/12/2023, moderater tricuspid regurgitation is present on this study. Procedure: A two-dimensional transthoracic echocardiogram with color flow and Doppler was performed. The study quality was technically adequate. A contrast injection of Definity was performed to improve assessment of LV function. The injection was performed through an intravenous line in the right arm. Comparison is made with the echocardiogram of 02-12-23. The heart rate ranged between 52-64 bpm during the study. Left Ventricle: The left ventricle is normal in size. There is normal left ventricular wall thickness. The ejection fraction is estimated to be 60-65%. Left ventricular systolic function is normal. Left ventricular wall motion is normal. Diastolic function could not be accurately assessed due to atrial fibrillation. Right Ventricle: The right ventricle is mildly dilated. Right ventricular systolic function is at the lower limits of normal. Atria: There is severe biatrial enlargement. The interatrial septum grossly appears intact with no obvious evidence for an atrial septal defect. Mitral Valve: The mitral valve leaflets appear mildly thickened, but open well. There is mild calcification extending into the subvalvular apparatus. There is trace mitral regurgitation. Aortic Valve: The aortic valve is slightly calcified. The aortic valve opens well. There is trace aortic regurgitation. Tricuspid Valve: The tricuspid valve leaflets are thin and pliable. The tricuspid valve leaflets are thickened and/or calcified, but open well. There is moderate tricuspid regurgitation. The right ventricular systolic pressure is estimated to be at least 35 mmHg based on an estimated right atrial pressure of 8 mm Hg. Pulmonic Valve: The pulmonic valve is not well visualized. Great Vessels: The aortic root is normal size. The ascending aorta is normal in size. The aortic arch is normal in size. The IVC is dilated (diameter is greater than 2.1 cm) yet it collapses greater than 50% with a sniff. This suggests a right atrial pressure of 8 mm Hg. Pericardium/ Pleura There is no pericardial effusion. There is no pleural effusion. MMode/2D Measurements & Calculations LVIDd: 5.0 cm AoV Openin.6 cm LVIDs: 2.7 cm LVOT diam: 2.3 cm IVSd: 1.1 cm Ao root diam: 3.7 cm LVPWd: 0.82 cm asc Aorta Diam: 3.5 cm LV moreira. diameter/BSA (cm/m^2): 2.3 Ao Arch Diam (Prox Trans): 3.2 cm LV sys. diameter/BSA (cm/m^2): 1.2 FS: 46.0 % EPSS: 0.34 cm LA A2 area: 29.8 cm2 RA long axis: 7.1 cm LA A4 area: 41.8 cm2 RA area: 33.8 cm2 LA length (vol): 7.5 cm RA vol: 136.0 ml LA vol: 140.2 ml RA : 61.3 ml/m2 LA vol index: 63.2 ml/m2 RVD1 (basal): 3.4 cm IVC diam: 2.3 cm Doppler Measurements & Calculations Ao V2 max: 160.9 cm/sec LVOT Max Ant: 85.2 cm/sec Ao V2 mean: 108.4 cm/sec LV V1 max P.9 mmHg Ao V2 VTI: 34.3 cm LV V1 VTI: 19.6 cm Ao max P.4 mmHg Ao mean P.4 mmHg VARSHA(I,D): 2.4 cm2 Med Peak E' Ant: 9.3 cm/sec VARSHA(V,D): 2.2 cm2 Lat Peak E' Ant: 13.2 cm/sec VARSHA indexed to BSA (cm^2/m^2): 1.1 sev ratio: 0.57 MV mean P.3 mmHg TR max ant: 261.1 cm/sec MVA(VTI): 3.3 cm2 TR max P.3 mmHg PA pr(Accel): 17.3 mmHg MV V2 mean: 44.1 cm/sec MV V2 VTI: 24.8 cm SV(LVOT): 80.9 ml Reading Physician:04:28 PM
== END ==
PROVIDERS: Family Provider Internal Medicine; PCP Physician Assistant; Referring Provider Chiropractor; Visit Provider Chiropractor
DX: I07.1 Rheumatic tricuspid insufficiency (principal); I48.91 Unspecified atrial fibrillation; I27.20 Pulmonary hypertension, unspecified
CPT/HCPCS: 93306; Q9957

== ENCOUNTER → 2023-07-22 10:13 | Outpatient (CLI) | payer MEDICARE, OTHER, SELFPAY ==
[2022-10-08 10:33] VITALS: BMI 29.1
== END ==
PROVIDERS: Family Provider Internal Medicine; PCP Physician Assistant; Visit Provider Urology
DX: N13.30 Unspecified hydronephrosis (principal); R33.9 Retention of urine, unspecified; Z93.59 Other cystostomy status
CPT/HCPCS: 51702; 87086

== ENCOUNTER → 2023-08-23 10:11 | Outpatient (CLI) | payer MEDICARE, OTHER, SELFPAY ==
[2022-10-08 10:33] VITALS: BMI 29.1
== END ==
PROVIDERS: Family Provider Internal Medicine; PCP Physician Assistant; Visit Provider Urology
DX: N39.490 Overflow incontinence (principal); R33.8 Other retention of urine; N39.43 Post-void dribbling; Z97.8 Presence of other specified devices
CPT/HCPCS: 51702; 87077; 87086; 87186

== ENCOUNTER → 2023-09-20 10:52 | Outpatient (CLI) | payer MEDICARE, OTHER, SELFPAY ==
[2022-10-08 10:33] VITALS: BMI 29.1
== END ==
PROVIDERS: Family Provider Internal Medicine; PCP Physician Assistant; Visit Provider Urology
DX: N13.30 Unspecified hydronephrosis (principal); R33.9 Retention of urine, unspecified; Z93.59 Other cystostomy status; Z97.8 Presence of other specified devices
CPT/HCPCS: 51702; 87077; 87086; 87186

== ENCOUNTER → 2023-10-18 10:53 | Outpatient (CLI) | payer MEDICARE, OTHER, SELFPAY ==
[2022-10-08 10:33] VITALS: BMI 29.1
== END ==
PROVIDERS: Family Provider Internal Medicine; PCP Physician Assistant; Visit Provider Urology
DX: N13.30 Unspecified hydronephrosis (principal); R33.9 Retention of urine, unspecified; Z97.8 Presence of other specified devices; Z93.59 Other cystostomy status
CPT/HCPCS: 51702; 87086

== ENCOUNTER → 2023-11-22 11:20 | Outpatient (CLI) | payer MEDICARE, OTHER, SELFPAY ==
[2022-10-08 10:33] VITALS: BMI 29.1
== END ==
PROVIDERS: Family Provider Internal Medicine; PCP Physician Assistant; Visit Provider Urology
DX: R33.9 Retention of urine, unspecified (principal); Z93.59 Other cystostomy status; N13.30 Unspecified hydronephrosis; Z97.8 Presence of other specified devices
CPT/HCPCS: 51702; 87077; 87086; 87147; 87186

== ENCOUNTER → 2023-12-22 12:06 | Outpatient (CLI) | payer MEDICARE, OTHER, SELFPAY ==
[2022-10-08 10:33] VITALS: BMI 29.1
== END ==
PROVIDERS: Family Provider Internal Medicine; PCP Physician Assistant; Visit Provider Urology
DX: R33.9 Retention of urine, unspecified (principal); Z93.59 Other cystostomy status; Z97.8 Presence of other specified devices
CPT/HCPCS: 87086

== ENCOUNTER → 2024-01-21 11:40 | Outpatient (CLI) | payer MEDICARE, OTHER, SELFPAY ==
[2022-10-08 10:33] VITALS: BMI 29.1
== END ==
PROVIDERS: Family Provider Internal Medicine; PCP Physician Assistant; Visit Provider Urology
DX: R33.9 Retention of urine, unspecified (principal); Z97.8 Presence of other specified devices; Z93.59 Other cystostomy status
CPT/HCPCS: 87077; 87086; 87186

== ENCOUNTER → 2024-02-18 12:31 | Outpatient (CLI) | payer MEDICARE, OTHER, SELFPAY ==
[2022-10-08 10:33] VITALS: BMI 29.1
== END ==
PROVIDERS: Family Provider Internal Medicine; PCP Physician Assistant; Visit Provider Urology
DX: Z93.59 Other cystostomy status (principal); Z97.8 Presence of other specified devices
CPT/HCPCS: 87077; 87086; 87147; 87186

== ENCOUNTER → 2024-03-20 11:22 | Outpatient (CLI) | payer MEDICARE, OTHER, SELFPAY ==
[2022-10-08 10:33] VITALS: BMI 29.1
== END ==
PROVIDERS: Family Provider Internal Medicine; PCP Physician Assistant; Visit Provider Urology
DX: Z93.59 Other cystostomy status (principal); R33.9 Retention of urine, unspecified
CPT/HCPCS: 51702; 87077; 87086; 87186

== ENCOUNTER → 2024-04-20 10:52 | Outpatient (CLI) | payer MEDICARE, OTHER, SELFPAY ==
[2022-10-08 10:33] VITALS: BMI 29.1
== END ==
PROVIDERS: Family Provider Internal Medicine; PCP Physician Assistant; Visit Provider Urology
DX: R33.9 Retention of urine, unspecified (principal)
CPT/HCPCS: 87077; 87086; 87147; 87186

== ENCOUNTER → 2024-05-17 11:51 | Outpatient (CLI) | payer MEDICARE, OTHER, SELFPAY ==
[2022-10-08 10:33] VITALS: BMI 29.1
== END ==
PROVIDERS: Family Provider Internal Medicine; PCP Physician Assistant; Visit Provider Urology
DX: Z97.8 Presence of other specified devices (principal); R33.9 Retention of urine, unspecified
CPT/HCPCS: 87077; 87086; 87147; 87186

== ENCOUNTER → 2024-06-14 12:13 | Outpatient (CLI) | payer MEDICARE, OTHER, SELFPAY ==
[2022-10-08 10:33] VITALS: BMI 29.1
== END ==
PROVIDERS: Family Provider Internal Medicine; PCP Physician Assistant; Visit Provider Urology
DX: R33.9 Retention of urine, unspecified (principal); Z93.59 Other cystostomy status; Z97.8 Presence of other specified devices
CPT/HCPCS: 51705; 87077; 87086; 87186

== ENCOUNTER → 2024-07-12 11:51 | Outpatient (CLI) | payer MEDICARE, OTHER, SELFPAY ==
[2022-10-08 10:33] VITALS: BMI 29.1
== END ==
PROVIDERS: Family Provider Internal Medicine; PCP Physician Assistant; Visit Provider Urology
DX: R33.9 Retention of urine, unspecified (principal); Z97.8 Presence of other specified devices
CPT/HCPCS: 51705; 87077; 87086; 87186

== ENCOUNTER → 2024-08-10 11:44 | Outpatient (CLI) | payer MEDICARE, OTHER, SELFPAY ==
[2022-10-08 10:33] VITALS: BMI 29.1
== END ==
PROVIDERS: Family Provider Internal Medicine; PCP Physician Assistant; Visit Provider Urology
DX: R33.9 Retention of urine, unspecified (principal); Z93.59 Other cystostomy status; Z97.8 Presence of other specified devices
CPT/HCPCS: 51705; 87077; 87086; 87186

== ENCOUNTER → 2024-09-07 12:19 | Outpatient (CLI) | payer MEDICARE, OTHER, SELFPAY ==
[2022-10-08 10:33] VITALS: BMI 29.1
== END ==
PROVIDERS: Family Provider Internal Medicine; PCP Physician Assistant; Visit Provider Urology
DX: Z93.59 Other cystostomy status (principal); Z97.8 Presence of other specified devices; R33.9 Retention of urine, unspecified
CPT/HCPCS: 87077; 87086

== ENCOUNTER → 2024-10-03 11:35 | Outpatient (CLI) | payer MEDICARE, OTHER, SELFPAY ==
[2022-10-08 10:33] VITALS: BMI 29.1
== END ==
PROVIDERS: Family Provider Internal Medicine; PCP Physician Assistant; Visit Provider Urology
DX: R33.9 Retention of urine, unspecified (principal); Z93.59 Other cystostomy status; Z97.8 Presence of other specified devices
CPT/HCPCS: 51705; 87077; 87086; 87186

== ENCOUNTER → 2024-10-31 11:10 | Outpatient (CLI) | payer MEDICARE, OTHER, SELFPAY ==
[2022-10-08 10:33] VITALS: BMI 29.1
== END ==
PROVIDERS: Family Provider Internal Medicine; PCP Physician Assistant; Visit Provider Urology
DX: Z93.59 Other cystostomy status (principal); R33.8 Other retention of urine
CPT/HCPCS: 51705; 87077; 87086; 87186

== ENCOUNTER → 2024-11-30 11:33 | Outpatient (CLI) | payer MEDICARE, OTHER, SELFPAY ==
[2022-10-08 10:33] VITALS: BMI 29.1
== END ==
LOC: LAB 11:34
PROVIDERS: Family Provider Internal Medicine; PCP Physician Assistant; Visit Provider Urology
DX: Z93.59 Other cystostomy status (principal); Z97.8 Presence of other specified devices; R33.9 Retention of urine, unspecified
CPT/HCPCS: 87077; 87086; 87186

== ENCOUNTER → 2025-01-02 11:22 | Outpatient (CLI) | payer MEDICARE, OTHER, SELFPAY ==
[2022-10-08 10:33] VITALS: BMI 29.1
== END ==
PROVIDERS: Family Provider Internal Medicine; PCP Physician Assistant; Visit Provider Urology
DX: Z93.59 Other cystostomy status (principal); Z97.8 Presence of other specified devices; R33.9 Retention of urine, unspecified
CPT/HCPCS: 51705; 87077; 87086; 87186